=== PATIENT | female | born 1990 | race Caucasian/White ===

== ENCOUNTER 2025-01-14 13:25 | Emergency (ER) | payer OTHER, SELFPAY ==
[2025-01-14] VITALS (15 sets, daily range): BP systolic 138–214; BP diastolic 89–120; PULSE 56–76; RESP 14–18; TEMP 36.4–36.7; O2SAT 98–100; BMI 40.3
--- NOTE | 2025-01-14 13:28 | ECG_ITS ---
APPROVED REPORT Exam: Resting ECG HR:66 bpm ECG Measurements Heart Rate 66 AXES NE 147 P 47 QRSd 76 QRS 30 QT 365 T 22 QTc 378 Conclusion SINUS RHYTHM WITH SINUS ARRHYTHMIA NORMAL ECG UNCONFIRMED REPORT Normal sinus rhythm. No ST elevation or depression. Electronically signed by : QUETA REYNOSO, 01/15/2025 07:34:51
--- NOTE | 2025-01-14 13:32 | [facility].EDCP ---
Discharge Plan Disposition Patient Disposition: Home, Self-Care Condition: Good Activity Restrictions/Add. Instructions Additional Instructions/Restrictions: As we discussed I recommend following up with your PCP as soon as you get back to [place]. I also recommend you continue to keep a blood pressure log for the next few days in the morning and at night as some other point during the day. If you have any new or worsening signs or symptoms return to the ER as needed. Clinical Impressions Clinical Impression: Chest pain Qualifiers: Chest pain type: unspecified Qualified Code(s): R07.9 - Chest pain, unspecified Print Language Print Language: [place] Discharge ED Provider: Jose Juan Guajardo HPI <NITA Baxter - Last Filed: 01/14/25 16:36> General Chief Complaint: Chest Pain Stated Complaint: chest pain Time Seen by Provider: 01/14/25 13:32 History of Present Illness HPI narrative: Patient presents for evaluation of chest heaviness. Patient reports that approximately 2 to 3 hours ago she began having chest heaviness. She also reports that she has dizziness that is not aggravated by movement or position. Patient has no known past medical history other than obesity and endometriosis and is on no home medications currently. She does not smoke. She denies shortness of breath diaphoresis fever chills hemoptysis hematochezia melena nausea vomiting or diarrhea. Related Data Allergies Allergy/AdvReac Type Severity Reaction Status Date / Time No Known Allergies Allergy Verified 01/14/25 13:36 [facility] <NITA Baxter - Last Filed: 01/14/25 16:36> [facility] Disclaimer: The information contained in this section may have been updated after the patient was seen, as this information can be updated by other users. Social History (Updated 01/14/25 @ 16:36 by NITA Baxter) Smoking Status: Never smoker alcohol intake: never current occupational status: employed Travel in the last 8 weeks?: None Have you lived/traveled outside US in past 30 days?: No Contact w/someone who lives/traveled outside US past 30 days?: No Exposure to someone with infectious disease in past 14 days?: No Do you have a fever (greater than 100.4 F or 38 C)?: No Have you tested positive for COVID-19?: No Exposed to someone with COVID-19 in past 14 days?: No Do you have a sore throat?: No Do you have a cough?: No Do you have any weakness?: No Do you have any diarrhea?: No Are you experiencing any unusual bleeding?: No Do you have any muscle aches/pain?: No Do you have any abdominal pain?: No Are you experiencing loss of taste or smell?: No <NITA Baxter - Last Filed: 01/14/25 16:36> ROS Obtained: Yes Systems reviewed as appropriate & no additional complaints except as documented Physical Exam <NITA Baxter - Last Filed: 01/14/25 16:36> General General appearance: alert and in no apparent distress Respiratory Respiratory exam: Present normal lung sounds bilaterally Cardiovascular Cardiovascular exam: Present regular rate Neurological Exam Neurological exam: Present alert and oriented X3 HEART Score <NITA Baxter - Last Filed: 01/14/25 16:36> HEART Score HEART Score assessment performed?: Yes History (anamnesis): Slightly suspicious ECG: Normal Age: <45 years Risk factors: 1-2 risk factors Troponin: </= normal limit HEART Score: 1 <Jose Juan Guajardo MD - Last Filed: 01/14/25 19:47> HEART Score HEART Score: 1 <Kirk Amezquita MD - Last Filed: 01/14/25 16:46> HEART Score HEART Score: 1 Critical Care <NITA Baxter - Last Filed: 01/14/25 16:36> Critical Care Time Critical Care Time: No Medical Decision Making <NITA Baxter - Last Filed: 01/14/25 16:36> Medical Records Medical records reviewed: Yes I reviewed the patient's medical records. Richar Inquiry Pt receiving controlled substance: No Vital Signs Vital Signs: 01/14/25 13:31 01/14/25 13:39 01/14/25 13:46 Temperature 98.1 F Temperature Source Oral Pulse Rate 76 66 Pulse Rate [Left] 76 Respiratory Rate 18 18 16 Blood Pressure 171/100 H 158/96 H Blood Pressure [Left AC] 214/120 H Blood Pressure Mean 123 116 Blood Pressure Mean [Left AC] 151 Blood Pressure Source Blood Pressure Source [Left AC] Automatic Cuff Blood Pressure Position 02 Sat by Pulse Oximetry 100 100 100 Oxygen Delivery Method Room Air 01/14/25 14:03 01/14/25 14:16 01/14/25 14:30 Temperature Temperature Source Pulse Rate 68 67 66 Pulse Rate [Left] Respiratory Rate 18 18 18 Blood Pressure 158/104 H 158/93 H 159/92 H Blood Pressure [Left AC] Blood Pressure Mean 122 112 114 Blood Pressure Mean [Left AC] Blood Pressure Source Blood Pressure Source [Left AC] Blood Pressure Position 02 Sat by Pulse Oximetry 100 99 99 Oxygen Delivery Method 01/14/25 14:45 01/14/25 15:00 01/14/25 15:16 Temperature Temperature Source Pulse Rate 70 63 63 Pulse Rate [Left] Respiratory Rate 18 16 18 Blood Pressure 138/90 148/89 H 138/92 H Blood Pressure [Left AC] Blood Pressure Mean 106 109 112 Blood Pressure Mean [Left AC] Blood Pressure Source Blood Pressure Source [Left AC] Blood Pressure Position 02 Sat by Pulse Oximetry 98 98 99 Oxygen Delivery Method 01/14/25 15:30 01/14/25 15:45 01/14/25 16:00 Temperature Temperature Source Pulse Rate 62 63 59 L Pulse Rate [Left] Respiratory Rate 18 16 16 Blood Pressure 145/98 H 147/91 H 157/106 H Blood Pressure [Left AC] Blood Pressure Mean 112 109 116 Blood Pressure Mean [Left AC] Blood Pressure Source Blood Pressure Source [Left AC] Blood Pressure Position 02 Sat by Pulse Oximetry 100 98 99 Oxygen Delivery Method 01/14/25 16:16 01/14/25 16:16 01/14/25 16:24 Temperature 97.6 F Temperature Source Oral Pulse Rate 59 L 66 61 Pulse Rate [Left] Respiratory Rate 14 14 Blood Pressure 151/98 H 151/98 H Blood Pressure [Left AC] Blood Pressure Mean 109 Blood Pressure Mean [Left AC] Blood Pressure Source Automatic Cuff Blood Pressure Source [Left AC] Blood Pressure Position Supine 02 Sat by Pulse Oximetry 98 98 Oxygen Delivery Method Room Air 01/14/25 16:30 Temperature Temperature Source Pulse Rate 56 L Pulse Rate [Left] Respiratory Rate Blood Pressure 163/102 H Blood Pressure [Left AC] Blood Pressure Mean 112 Blood Pressure Mean [Left AC] Blood Pressure Source Blood Pressure Source [Left AC] Blood Pressure Position 02 Sat by Pulse Oximetry Oxygen Delivery Method Lab Data Lab results reviewed: Yes I reviewed the patient's lab results. Labs: Lab Results 01/14/25 13:30: WBC 9.9, RBC 4.89, Hgb 14.6, Hct 42.8, MCV 87.5, MCH 29.9, MCHC 34.1, RDW 13.0, Plt Count 378, MPV 8.8, Neut % (Auto) 45.7, Lymph % (Auto) 41.0, [place] % (Auto) 7.2, Eos % (Auto) 5.1, Baso % (Auto) 0.8, Neut # (Auto) 4.5, Lymph # (Auto) 4.1, [place] # (Auto) 0.7, Eos # (Auto) 0.5 H, Baso # (Auto) 0.1, PT 11.0, INR 0.99, D-Dimer 0.89 H, Sodium 136, Potassium 3.3 L, Chloride 102, Carbon Dioxide 26, Anion Gap 11.3, BUN 9, Creatinine 0.70, Estimated Creat Clear 207, Estimated GFR 97, Est GFR ( Amer) 117, Glucose 94, Calcium 9.7, Magnesium 1.7, Total Bilirubin 0.9, AST 31, ALT 24, Alkaline Phosphatase 104, Troponin I < 0.01, NT-Pro-B Natriuret Pep < 20.0, Total Protein 8.0, Albumin 4.7, Globulin 3.3 H, Albumin/Globulin Ratio 1.4, Procalcitonin 0.055, TSH 1.40, Free T4 Index 3.5 L, Thyroxine (T4) 10.1, T3 Uptake 35, HCV Ab JHONATAN w/Rflx PCR Qn Negative, HIV Ag/Ab Combo Qual Negative 01/14/25 14:02: Urine Color Yellow, Urine Appearance Clear, Urine pH 6.0, Ur Specific [place] 1.020, Urine Protein Trace, Urine Glucose (UA) Negative, Urine Ketones Negative, Urine Blood 3+ A, Urine Nitrate Negative, Urine Bilirubin Negative, Urine Urobilinogen 0.2, Ur Leukocyte Esterase Negative, Urine RBC 5-10, Urine WBC Occasional, Ur Squamous Epith Cells 20-50, Urine Bacteria 1+, Urine HCG, Qual Negative 01/14/25 15:45: Troponin I < 0.01 01/14/25 13:30 01/14/25 13:30 Response Orders (Tests/Meds): ED MEDICATIONS Discontinued Medications Generic Name Dose Route Start Last Admin Trade Name Freq PRN Reason Stop Dose Admin Acetaminophen 1,000 mg 01/14/25 13:32 01/14/25 13:39 Acetaminophen 500mg Tab PO 01/14/25 13:33 1,000 mg ONCE ONE Administration Ondansetron HCl 4 mg 01/14/25 13:32 01/14/25 13:39 Ondansetron 4mg/2ml Vial IV 01/14/25 13:33 4 mg ONCE ONE Administration ORDERS Category Date Time Status XR chest portable Stat Exams 01/14/25 13:34 Completed BNP [NT Pro Brain Natriuretic Pep.] Stat Lab 01/14/25 13:30 Completed CBC w/Auto Diff [Complete Blood Count Auto Diff] Stat Lab 01/14/25 13:30 Completed CMP [Comprehensive Metabolic Panel] Stat Lab 01/14/25 13:30 Completed D-Dimer Stat Lab 01/14/25 13:30 Completed HIV Combo Stat Lab 01/14/25 13:30 Completed Hepatitis C Ab Qual. W/ RFX Stat Lab 01/14/25 13:30 Completed INR [Prothrombin Time INR] Stat Lab 01/14/25 13:30 Completed Magnesium Stat Lab 01/14/25 13:30 Completed Procalcitonin Stat Lab 01/14/25 13:30 Completed Thyroid Panel Stat Lab 01/14/25 13:30 Completed Trop I [Troponin I] Stat Lab 01/14/25 13:30 Completed Troponin I Q3H Lab 01/14/25 15:45 Completed UA [Urinalysis and Microscopic] Stat Lab 01/14/25 14:02 Completed Urine , HCG Qual. Stat Lab 01/14/25 14:02 Completed MDM Narrative Medical Decision Narrative: In summary patient is a 34-year-old female who presents to the emergency department for evaluation of chest pressure. Patient is significantly hypertensive currently with a blood pressure of 214/120 heart rate 76 with sinus rhythm on the bedside monitor breathing 18 times a minute satting at 100% on room air upon arrival, afebrile at 90.1. Physical exam is remarkable for well-nourished well-developed obese, with a BMI of 40, 34-year-old female who otherwise in no acute distress. Pupils equal round reactive to light, bilateral legs are normal, with no C-spine tenderness; any and she has full range of motion of her C-spine without dizziness provocation. Breath sounds clear and equal bilaterally to the bases without adventitious sounds or increased work of breathing, cardiac is S1-2 regular rhythm, no thrills, abdomen soft nontender no re is the patient was placed in observation status at [time]. Medical necessity for observational status is serial troponins. The patient was provided serial reevaluations continuous cardiac monitoring and pulse oximetry while awaiting results. Second troponin is also undetectable. Upon reevaluation patient remains asymptomatic with normal blood pressure. Given this patient is appropriate for discharge with close follow-up with her PCP when she returns to [place]. If she has any new or worsening signs or symptoms she can return to the ER as needed.. Total time in observation was 1 hour 30 minutes <Jose Juan Guajardo MD - Last Filed: 01/14/25 19:47> Vital Signs Vital Signs: 01/14/25 13:31 01/14/25 13:39 01/14/25 13:46 Temperature 98.1 F Temperature Source Oral Pulse Rate 76 66 Pulse Rate [Left] 76 Respiratory Rate 18 18 16 Blood Pressure 171/100 H 158/96 H Blood Pressure [Left AC] 214/120 H Blood Pressure Mean 123 116 Blood Pressure Mean [Left AC] 151 Blood Pressure Source Blood Pressure Source [Left AC] Automatic Cuff Blood Pressure Position 02 Sat by Pulse Oximetry 100 100 100 Oxygen Delivery Method Room Air 01/14/25 14:03 01/14/25 14:16 01/14/25 14:30 Temperature Temperature Source Pulse Rate 68 67 66 Pulse Rate [Left] Respiratory Rate 18 18 18 Blood Pressure 158/104 H 158/93 H 159/92 H Blood Pressure [Left AC] Blood Pressure Mean 122 112 114 Blood Pressure Mean [Left AC] Blood Pressure Source Blood Pressure Source [Left AC] Blood Pressure Position 02 Sat by Pulse Oximetry 100 99 99 Oxygen Delivery Method 01/14/25 14:45 01/14/25 15:00 01/14/25 15:16 Temperature Temperature Source Pulse Rate 70 63 63 Pulse Rate [Left] Respiratory Rate 18 16 18 Blood Pressure 138/90 148/89 H 138/92 H Blood Pressure [Left AC] Blood Pressure Mean 106 109 112 Blood Pressure Mean [Left AC] Blood Pressure Source Blood Pressure Source [Left AC] Blood Pressure Position 02 Sat by Pulse Oximetry 98 98 99 Oxygen Delivery Method 01/14/25 15:30 01/14/25 15:45 01/14/25 16:00 Temperature Temperature Source Pulse Rate 62 63 59 L Pulse Rate [Left] Respiratory Rate 18 16 16 Blood Pressure 145/98 H 147/91 H 157/106 H Blood Pressure [Left AC] Blood Pressure Mean 112 109 116 Blood Pressure Mean [Left AC] Blood Pressure Source Blood Pressure Source [Left AC] Blood Pressure Position 02 Sat by Pulse Oximetry 100 98 99 Oxygen Delivery Method 01/14/25 16:16 01/14/25 16:16 01/14/25 16:24 Temperature 97.6 F Temperature Source Oral Pulse Rate 59 L 66 61 Pulse Rate [Left] Respiratory Rate 14 14 Blood Pressure 151/98 H 151/98 H Blood Pressure [Left AC] Blood Pressure Mean 109 Blood Pressure Mean [Left AC] Blood Pressure Source Automatic Cuff Blood Pressure Source [Left AC] Blood Pressure Position Supine 02 Sat by Pulse Oximetry 98 98 Oxygen Delivery Method Room Air 01/14/25 16:30 Temperature Temperature Source Pulse Rate 56 L Pulse Rate [Left] Respiratory Rate Blood Pressure 163/102 H Blood Pressure [Left AC] Blood Pressure Mean 112 Blood Pressure Mean [Left AC] Blood Pressure Source Blood Pressure Source [Left AC] Blood Pressure Position 02 Sat by Pulse Oximetry Oxygen Delivery Method Lab Data Labs: Lab Results 01/14/25 13:30: WBC 9.9, RBC 4.89, Hgb 14.6, Hct 42.8, MCV 87.5, MCH 29.9, MCHC 34.1, RDW 13.0, Plt Count 378, MPV 8.8, Neut % (Auto) 45.7, Lymph % (Auto) 41.0, [place] % (Auto) 7.2, Eos % (Auto) 5.1, Baso % (Auto) 0.8, Neut # (Auto) 4.5, Lymph # (Auto) 4.1, [place] # (Auto) 0.7, Eos # (Auto) 0.5 H, Baso # (Auto) 0.1, PT 11.0, INR 0.99, D-Dimer 0.89 H, Sodium 136, Potassium 3.3 L, Chloride 102, Carbon Dioxide 26, Anion Gap 11.3, BUN 9, Creatinine 0.70, Estimated Creat Clear 207, Estimated GFR 97, Est GFR ( Amer) 117, Glucose 94, Calcium 9.7, Magnesium 1.7, Total Bilirubin 0.9, AST 31, ALT 24, Alkaline Phosphatase 104, Troponin I < 0.01, NT-Pro-B Natriuret Pep < 20.0, Total Protein 8.0, Albumin 4.7, Globulin 3.3 H, Albumin/Globulin Ratio 1.4, Procalcitonin 0.055, TSH 1.40, Free T4 Index 3.5 L, Thyroxine (T4) 10.1, T3 Uptake 35, HCV Ab JHONATAN w/Rflx PCR Qn Negative, HIV Ag/Ab Combo Qual Negative 01/14/25 14:02: Urine Color Yellow, Urine Appearance Clear, Urine pH 6.0, Ur Specific [place] 1.020, Urine Protein Trace, Urine Glucose (UA) Negative, Urine Ketones Negative, Urine Blood 3+ A, Urine Nitrate Negative, Urine Bilirubin Negative, Urine Urobilinogen 0.2, Ur Leukocyte Esterase Negative, Urine RBC 5-10, Urine WBC Occasional, Ur Squamous Epith Cells 20-50, Urine Bacteria 1+, Urine HCG, Qual Negative 01/14/25 15:45: Troponin I < 0.01 Response Orders (Tests/Meds): ED MEDICATIONS Discontinued Medications Generic Name Dose Route Start Last Admin Trade Name Freq PRN Reason Stop Dose Admin Acetaminophen 1,000 mg 01/14/25 13:32 01/14/25 13:39 Acetaminophen 500mg Tab PO 01/14/25 13:33 1,000 mg ONCE ONE Administration Ondansetron HCl 4 mg 01/14/25 13:32 01/14/25 13:39 Ondansetron 4mg/2ml Vial IV 01/14/25 13:33 4 mg ONCE ONE Administration ORDERS Category Date Time Status XR chest portable Stat Exams 01/14/25 13:34 Completed BNP [NT Pro Brain Natriuretic Pep.] Stat Lab 01/14/25 13:30 Completed CBC w/Auto Diff [Complete Blood Count Auto Diff] Stat Lab 01/14/25 13:30 Completed CMP [Comprehensive Metabolic Panel] Stat Lab 01/14/25 13:30 Completed D-Dimer Stat Lab 01/14/25 13:30 Completed HIV Combo Stat Lab 01/14/25 13:30 Completed Hepatitis C Ab Qual. W/ RFX Stat Lab 01/14/25 13:30 Completed INR [Prothrombin Time INR] Stat Lab 01/14/25 13:30 Completed Magnesium Stat Lab 01/14/25 13:30 Completed Procalcitonin Stat Lab 01/14/25 13:30 Completed Thyroid Panel Stat Lab 01/14/25 13:30 Completed Trop I [Troponin I] Stat Lab 01/14/25 13:30 Completed Troponin I Q3H Lab 01/14/25 15:45 Completed UA [Urinalysis and Microscopic] Stat Lab 01/14/25 14:02 Completed Urine , HCG Qual. Stat Lab 01/14/25 14:02 Completed ECG Data Tracing #1: Attestation: I reviewed this ECG and interpreted as documented below: ECG Narrative: Normal sinus rhythm. No ST elevation or depression. No inverted T waves. QTc normal at 378 MDM Narrative Medical Decision Narrative: In summary patient is a 34-year-old female who presents to the emergency department for evaluation of chest pressure. Patient is significantly hypertensive currently with a blood pressure of 214/120 heart rate 76 with sinus rhythm on the bedside monitor breathing 18 times a minute satting at 100% on room air upon arrival, afebrile at 90.1. Physical exam is remarkable for well-nourished well-developed obese, with a BMI of 40, 34-year-old female who otherwise in no acute distress. Pupils equal round reactive to light, bilateral legs are normal, with no C-spine tenderness; any and she has full range of motion of her C-spine without dizziness provocation. Breath sounds clear and equal bilaterally to the bases without adventitious sounds or increased work of breathing, cardiac is S1-2 regular rhythm, no thrills, abdomen soft nontender no re is the patient was placed in observation status at [time]. Medical necessity for observational status is serial troponins. The patient was provided serial reevaluations continuous cardiac monitoring and pulse oximetry while awaiting results. Second troponin is also undetectable. Upon reevaluation patient remains asymptomatic with normal blood pressure. Given this patient is appropriate for discharge with close follow-up with her PCP when she returns to [place]. If she has any new or worsening signs or symptoms she can return to the ER as needed.. Total time in observation was 1 hour 30 minutes I was consulted by the RONNIE, and we discussed the complexity of the problems being addressed. I approve the treatment and management plan for this patient's care in the emergency department, thus performing a substantive portion of the medical decision making. At the time of my handoff to Dr. Amezquita, patient was pending second troponin. Her symptoms had resolved at this point and her blood pressure had significantly improved without intervention. If second troponin is flat, she would likely be appropriate for discharge. Jose Juan Guajardo MD I was consulted by the RONNIE, and we discussed the complexity of the problems being addressed. I approved the treatment and management plan for this patient's care in the emergency department, thus performing a substantive portion of the medical decision making. Kirk Amezquita MD <Kirk Amezquita MD - Last Filed: 01/14/25 16:46> Vital Signs Vital Signs: 01/14/25 13:31 01/14/25 13:39 01/14/25 13:46 Temperature 98.1 F Temperature Source Oral Pulse Rate 76 66 Pulse Rate [Left] 76 Respiratory Rate 18 18 16 Blood Pressure 171/100 H 158/96 H Blood Pressure [Left AC] 214/120 H Blood Pressure Mean 123 116 Blood Pressure Mean [Left AC] 151 Blood Pressure Source Blood Pressure Source [Left AC] Automatic Cuff Blood Pressure Position 02 Sat by Pulse Oximetry 100 100 100 Oxygen Delivery Method Room Air 01/14/25 14:03 01/14/25 14:16 01/14/25 14:30 Temperature Temperature Source Pulse Rate 68 67 66 Pulse Rate [Left] Respiratory Rate 18 18 18 Blood Pressure 158/104 H 158/93 H 159/92 H Blood Pressure [Left AC] Blood Pressure Mean 122 112 114 Blood Pressure Mean [Left AC] Blood Pressure Source Blood Pressure Source [Left AC] Blood Pressure Position 02 Sat by Pulse Oximetry 100 99 99 Oxygen Delivery Method 01/14/25 14:45 01/14/25 15:00 01/14/25 15:16 Temperature Temperature Source Pulse Rate 70 63 63 Pulse Rate [Left] Respiratory Rate 18 16 18 Blood Pressure 138/90 148/89 H 138/92 H Blood Pressure [Left AC] Blood Pressure Mean 106 109 112 Blood Pressure Mean [Left AC] Blood Pressure Source Blood Pressure Source [Left AC] Blood Pressure Position 02 Sat by Pulse Oximetry 98 98 99 Oxygen Delivery Method 01/14/25 15:30 01/14/25 15:45 01/14/25 16:00 Temperature Temperature Source Pulse Rate 62 63 59 L Pulse Rate [Left] Respiratory Rate 18 16 16 Blood Pressure 145/98 H 147/91 H 157/106 H Blood Pressure [Left AC] Blood Pressure Mean 112 109 116 Blood Pressure Mean [Left AC] Blood Pressure Source Blood Pressure Source [Left AC] Blood Pressure Position 02 Sat by Pulse Oximetry 100 98 99 Oxygen Delivery Method 01/14/25 16:16 01/14/25 16:16 01/14/25 16:24 Temperature 97.6 F Temperature Source Oral Pulse Rate 59 L 66 61 Pulse Rate [Left] Respiratory Rate 14 14 Blood Pressure 151/98 H 151/98 H Blood Pressure [Left AC] Blood Pressure Mean 109 Blood Pressure Mean [Left AC] Blood Pressure Source Automatic Cuff Blood Pressure Source [Left AC] Blood Pressure Position Supine 02 Sat by Pulse Oximetry 98 98 Oxygen Delivery Method Room Air 01/14/25 16:30 Temperature Temperature Source Pulse Rate 56 L Pulse Rate [Left] Respiratory Rate Blood Pressure 163/102 H Blood Pressure [Left AC] Blood Pressure Mean 112 Blood Pressure Mean [Left AC] Blood Pressure Source Blood Pressure Source [Left AC] Blood Pressure Position 02 Sat by Pulse Oximetry Oxygen Delivery Method Lab Data Labs: Lab Results 01/14/25 13:30: WBC 9.9, RBC 4.89, Hgb 14.6, Hct 42.8, MCV 87.5, MCH 29.9, MCHC 34.1, RDW 13.0, Plt Count 378, MPV 8.8, Neut % (Auto) 45.7, Lymph % (Auto) 41.0, [place] % (Auto) 7.2, Eos % (Auto) 5.1, Baso % (Auto) 0.8, Neut # (Auto) 4.5, Lymph # (Auto) 4.1, [place] # (Auto) 0.7, Eos # (Auto) 0.5 H, Baso # (Auto) 0.1, PT 11.0, INR 0.99, D-Dimer 0.89 H, Sodium 136, Potassium 3.3 L, Chloride 102, Carbon Dioxide 26, Anion Gap 11.3, BUN 9, Creatinine 0.70, Estimated Creat Clear 207, Estimated GFR 97, Est GFR ( Amer) 117, Glucose 94, Calcium 9.7, Magnesium 1.7, Total Bilirubin 0.9, AST 31, ALT 24, Alkaline Phosphatase 104, Troponin I < 0.01, NT-Pro-B Natriuret Pep < 20.0, Total Protein 8.0, Albumin 4.7, Globulin 3.3 H, Albumin/Globulin Ratio 1.4, Procalcitonin 0.055, TSH 1.40, Free T4 Index 3.5 L, Thyroxine (T4) 10.1, T3 Uptake 35, HCV Ab JHONATAN w/Rflx PCR Qn Negative, HIV Ag/Ab Combo Qual Negative 01/14/25 14:02: Urine Color Yellow, Urine Appearance Clear, Urine pH 6.0, Ur Specific [place] 1.020, Urine Protein Trace, Urine Glucose (UA) Negative, Urine Ketones Negative, Urine Blood 3+ A, Urine Nitrate Negative, Urine Bilirubin Negative, Urine Urobilinogen 0.2, Ur Leukocyte Esterase Negative, Urine RBC 5-10, Urine WBC Occasional, Ur Squamous Epith Cells 20-50, Urine Bacteria 1+, Urine HCG, Qual Negative 01/14/25 15:45: Troponin I < 0.01 Response Orders (Tests/Meds): ED MEDICATIONS Discontinued Medications Generic Name Dose Route Start Last Admin Trade Name Freq PRN Reason Stop Dose Admin Acetaminophen 1,000 mg 01/14/25 13:32 01/14/25 13:39 Acetaminophen 500mg Tab PO 01/14/25 13:33 1,000 mg ONCE ONE Administration Ondansetron HCl 4 mg 01/14/25 13:32 01/14/25 13:39 Ondansetron 4mg/2ml Vial IV 01/14/25 13:33 4 mg ONCE ONE Administration ORDERS Category Date Time Status XR chest portable Stat Exams 01/14/25 13:34 Completed BNP [NT Pro Brain Natriuretic Pep.] Stat Lab 01/14/25 13:30 Completed CBC w/Auto Diff [Complete Blood Count Auto Diff] Stat Lab 01/14/25 13:30 Completed CMP [Comprehensive Metabolic Panel] Stat Lab 01/14/25 13:30 Completed D-Dimer Stat Lab 01/14/25 13:30 Completed HIV Combo Stat Lab 01/14/25 13:30 Completed Hepatitis C Ab Qual. W/ RFX Stat Lab 01/14/25 13:30 Completed INR [Prothrombin Time INR] Stat Lab 01/14/25 13:30 Completed Magnesium Stat Lab 01/14/25 13:30 Completed Procalcitonin Stat Lab 01/14/25 13:30 Completed Thyroid Panel Stat Lab 01/14/25 13:30 Completed Trop I [Troponin I] Stat Lab 01/14/25 13:30 Completed Troponin I Q3H Lab 01/14/25 15:45 Completed UA [Urinalysis and Microscopic] Stat Lab 01/14/25 14:02 Completed Urine , HCG Qual. Stat Lab 01/14/25 14:02 Completed MDM Narrative Medical Decision Narrative: In summary patient is a 34-year-old female who presents to the emergency department for evaluation of chest pressure. Patient is significantly hypertensive currently with a blood pressure of 214/120 heart rate 76 with sinus rhythm on the bedside monitor breathing 18 times a minute satting at 100% on room air upon arrival, afebrile at 90.1. Physical exam is remarkable for well-nourished well-developed obese, with a BMI of 40, 34-year-old female who otherwise in no acute distress. Pupils equal round reactive to light, bilateral legs are normal, with no C-spine tenderness; any and she has full range of motion of her C-spine without dizziness provocation. Breath sounds clear and equal bilaterally to the bases without adventitious sounds or increased work of breathing, cardiac is S1-2 regular rhythm, no thrills, abdomen soft nontender no re is the patient was placed in observation status at [time]. Medical necessity for observational status is serial troponins. The patient was provided serial reevaluations continuous cardiac monitoring and pulse oximetry while awaiting results. Second troponin is also undetectable. Upon reevaluation patient remains asymptomatic with normal blood pressure. Given this patient is appropriate for discharge with close follow-up with her PCP when she returns to [place]. If she has any new or worsening signs or symptoms she can return to the ER as needed.. Total time in observation was 1 hour 30 minutes I was consulted by the RONNIE, and we discussed the complexity of the problems being addressed. I approved the treatment and management plan for this patient's care in the emergency department, thus performing a substantive portion of the medical decision making. Kirk Amezquita MD
--- NOTE | 2025-01-14 13:34 | XR_ITS ---
FINAL REPORT TECHNIQUE: Single view chest CLINICAL HISTORY: Chest pain FINDINGS: A single view of the chest was obtained. The heart and mediastinum are within normal limits. The lungs are clear. There is no pneumothorax. IMPRESSION: No acute cardiopulmonary process. Reviewed, Interpreted and Dictated by Claudia Ovalle MD Transcribed by Whitley Guadarrama Authenticated and . [facility] [place]
[2025-01-14] MEDS: ACETAMINOPHEN 500MG TAB 1000 MG PO (13:39)
[2025-01-14] MEDS: ONDANSETRON 4MG/2ML VIAL 4 MG IV (13:39)
[2025-01-14 14:02] LABS: Hematocrit 42.8 % (37.0-47.0); Hemoglobin 14.6 g/dL (12.2-16.2); Immature Granulocytes % 0.2 %; Mean Corpuscular HGB Conc 34.1 g/dL (31.8-35.4); Mean Corpuscular Hemoglobin 29.9 pg (27.0-31.2); Mean Corpuscular Volume 87.5 fl (81-99); Nucleated Red Blood Cells % 0 %; Platelet Count 378 K/mm3 (142-424); Red Blood Count 4.89 M/mm3 (4.20-5.40); Red Cell Distribution Width-SD 41.5 fL; White Blood Count 9.9 K/mm3 (4.8-10.8)
[2025-01-14 14:09] LABS: Microscopic, Urine URINE MICROSCOPIC (MICROSCOPIC)
[2025-01-14 14:11] LABS: Alanine Aminotransferase 24 U/L (12-78); Albumin Level 4.7 g/dl (3.5-5.0); Albumin/Globulin Ratio 1.4 (1.1-1.8); Alkaline Phosphatase 104 U/L (38-126); Anion Gap 11.3 mEq/L (5-15); Aspartate Amino Transferase 31 U/L (14-36); Bilirubin,Total 0.9 mg/dl (0.2-1.3); Blood Urea Nitrogen 9 mg/dl (7-17); Calcium 9.7 mg/dl (8.4-10.2); Carbon Dioxide 26 mmol/L (22.0-30.0); Chloride 102 mmol/L (98-107); Creatinine Clearance Estimated 207 mL/min (50-200); Creatinine,Serum 0.70 mg/dl (0.52-1.04); Estimated Glomerular Filt Rate 97 ml/min (>60); GFR (African American) 117 ML/MIN (>60); Globulin 3.3 g/dL (1.3-3.2); Glucose 94 mg/dl (74-100); Magnesium 1.7 mg/dl (1.6-2.3); Potassium 3.3 mmoL/L (3.5-5.1); Sodium 136 mmol/L (136-145); Total Protein,Serum 8.0 g/dl (6.3-8.2)
--- OUTSIDE RECORDS SUMMARY | 2025-01-14 14:13 | XMS_ITS | Encounter Summary ---
Author Organization [facility] Ambulatory Address [address] [place] [address] Phone Care Team Providers Care Auto Clocks Repairer Name Role Phone External, Provider Unavailable Unavailable Ted Aguirre MD Primary Care Provider [phone] Dionte Alexis MD Unavailable Quang Moreno MD Unavailable [phone] Sharmaine Harris PA-C Unavailable Provider, Generic External Data Unavailable Unavailable ProviderQuita MD Unavailable Unavailabl Chad Abreu MD Unavailable [phone] Provider, Historical Unavailable Unavailable Caren Jacobs PA-C Unavailable [phone] Source Comments This information has been disclosed to you from records protected by federal confidentiality rules (42 CFR part 2). The federal rules prohibit you from making any further disclosure of information inthis record that identifies a patient as having or having had a substance use disorder either directly, by reference to publicly available information, or through verification of such identification by another person unless further disclosure is expressly permitted by the written consent of the individual whose information is being disclosed or as otherwise permitted by 42 CFR part 2. A general authorization for the release of medical or other information is NOT sufficient for this purpose (seesection 2.31). The federal rules restrict any use of the information to investigate or prosecute with regard to a crime any patient with a substance use disorder, except as provided at sections 2.12(c)(5) and 2.65.[facility] Ambulatory Encounter Details Date Type Department Care Team (Latest Contact Info) Description 01/18/2014 Letter (Out) Social History Tobacco Use Types Packs/Day Years Used Date Smoking Tobacco: Never Alcohol Use Standard Drinks/Week Comments No 0 (1 standard drink = 0.6 oz pur e alcohol) Comments Unknown Sex and Gender Information Value Date Recorded Sex Assigned at Not on file Legal Sex Female 11:40 AM EST Gender Identity Not on file Sexual Orientation Not on file documented as of this encounter Plan of Treatment Not on file documented as of this encounter Visit Diagnoses Not on filedocumented in this encounter Care Teams Auto Clocks Repairer Relationship Specialty Start Date End Date Ted Aguirre MD PCP - General Family Medicine 01/18/14 External, Provider 01/17/14 Dionte Alexis MD [address] [place] [address] [address] [place] [address] Orthopaedics 01/18/14 Quang Moreno MD [address] [place] [address] [address] [place] [address] Orthopaedics 03/20/18 Sharmaine Harris PA-C [address] [place] [address] [place] [id number] Orthopaedic Surgery 04/18/18 Provider, Generic External Data 11/09/21 Provider, MD Quita [facility] PROVIDER 04/28/23 Chad Manning MD [address] [place] [address] [address] [place] [address] welt rander 05/09/23 Provider, Historical EPICARE PROVIDER 09/21/24 Caren Jacobs PA-C [address] [place] [phone] welt rander 09/27/24 documented as of this encounter
--- OUTSIDE RECORDS SUMMARY | 2025-01-14 14:13 | XMS_ITS | Referral Summary ---
Author Organization [facility] Ambulatory Address [address] [place] [address] Phone Care Team Providers Care Petal Cutter Name Role Phone External, Provider Unavailable Unavailable Ted Aguirre MD Primary Care Provider [phone] Dionte Alexis MD Unavailable Quang Moreno MD Unavailable [phone] Sharmaine Harris PA-C Unavailable [phone] Provider, Generic External Data Unavailable Unavailable ProviderQuita MD Unavailable Unavailabl e Chad Manning MD Unavailable [phone] Provider, Historical Unavailable Unavailable Caren Jacobs PA-C Unavailable [phone] Source Comments This information has been disclosed [...] except as provided at sections 2.12(c)(5) and 2.65.[facility] Ambulatory Allergies Active Allergy Reactions Criticality Noted Date Comments Latex 05/18/2019 Medications NO CURRENT CHRONIC MEDICATIONS Active albuterol sulfate 90 mcg/actuation inhl inhaler INHALE 1 PUFF BY MOUTH EVERY 6 HOURS NEEDED FOR 30 DAYS 2 Active atorvastatin (LIPITOR) 10 mg oral tablet Take 10 mg by mouth daily 2 Active budesonide-formo teroL (SYMBICORT) 160-4.5 mcg/actuation inhaler Take 2 puffs Active diltiazem (CARDIZEM CD) 120 mg oral extended-release capsule Take 240 mg by mouth daily 2 Active escitalopram oxalate (LEXAPRO) 10 mg oral tablet Take 10 mg by mouth daily 2 Active pantoprazole (PROTONIX) 20 mg oral delayed-release tablet Take 20 mg by mouth daily Active mometasone (ELOCON) 0.1 % topical creamIndications :Insect bite of lower leg, unspecified laterality, initial encounter Apply to affected area 2 times a day as needed 30 g 4 Active leuprolide, 3 Month, (LUPRON DEPOT, 3 MONTH,) 11.25 mg IM Injection once every 12 weeks 1 kit 3 5 Active Active Problems Problem Noted Date Diagnosed Date Finger mass, right 04/18/2018 Social History Tobacco Use Types Packs/Day Years Used Date Smoking Tobacco: Never Smokeless Tobacco: Never Alcohol Use Standard Drinks/Week Comments Yes 0 (1 standard drink = 0.6 oz pur e alcohol) Depression Answer Date Recorded PHQ Score Not on file 11/24/2019 PHQ Result PHQ-9 Score <= 4 11/24/2019 Comments No Sex and Gender Information Value Date Recorded Sex Assigned at Not on file Legal Sex Female 11:40 AM EST Gender Identity Not on file Sexual Orientation Not on file Last Filed Vital Signs Vital Sign Reading Time Taken Comments Blood Pressure 145/94 04/20/2024 5:49 PM EDT Pulse 89 04/20/2024 5:49 PM EDT Temperature 36.6 C (97.9 F) 04/20/2024 5:49 PM EDT Respiratory Rate 20 04/20/2024 5:49 PM EDT Oxygen Saturation 97% 04/20/2024 5:49 PM EDT Inhaled Oxygen Concentration - - Weight 110.7 kg (244 lb) 04/20/2024 5:49 PM EDT Height 167.6 cm (5' 6 ) 07/25/2023 1:54 PM EST Body Mass Index 39.38 07/25/2023 1:54 PM EST Plan of Treatment Not on file [place] [address] [address] EXCHANGE INDIVIDUAL [employer] [facility] EXCHANGE INDIVIDUAL [employer] [facility] EXCHANGE INDIVIDUAL [employer] [facility] [employer]CHANGE INDIVIDUAL [employer] [facility] [employer]CH[employer] INDIVIDUAL [employer] [facility] EXCHANGE INDIVIDUAL [employer] [facility] EXCHANGE INDIV[employer]UAL [place] [address] [place] [address] IN[address] [facility] [facility] EXCHANGE INDIVIDUAL [employer] Care Teams Petal Cutter Relationship Specialty Start Date End Date Ted Aguirre MD PCP - General Family Medicine 01/18/14 External, Provider 01/17/14 Dionte Alexis MD [address] [facility] [address] [place] [address] Orthopaedics 01/18/14 Quang Moreno MD [address] [place] [address] [address] [place] [address] Orthopaedics 03/20/18 Sharmaine Harris PAChristelC [address] [place] [address] [place] [address] Orthopaedic Surgery 04/18/18 Provider, Generic External Data 11/09/21 Provider, Abstract, [facility] PROVIDER 04/28/23 Chad Manning MD [address] [place] [id number] cant gang sawyer 05/09/23 Provider, Historical EPICARE PROVIDER 09/21/24 Caren Jacobs PA-C [address] [place] [phone] cant gang sawyer 09/27/24
--- OUTSIDE RECORDS SUMMARY | 2025-01-14 14:13 | XMS_ITS | Patient Health Record ---
Author Organization [facility] Address [address] [place] [address] Care Team Providers Care Eyeglass Assembler Name Role Phone Ted Aguirre Primary Care Provider [phone] Fredy OCHOA Beni Unavailable [phone] Gladys Rodarte Unavailable [phone] Allergies Allergen (clinical drug ingredient) Drug/Non Drug Allergy documented on EMR Reaction Allergy Type Onset Date Status Lulu Allergy 12 Hour (uncoded) Unknown Allergy Active grass (uncoded) sneezing Allergy Acti ve medroxyprogesterone Depo-Provera hives Drug Allergy Active miconazole Monistat 1 Combo Pack Unknown Drug Allergy Active predniSONE Unknown Drug Allergy Active Cortisone Unknown Drug Allergy Active Latex Latex Unknown Allergy Active losartan Losartan lip swelling Drug Allergy Acti ve Results Component Value Reference Range Notes COMPREHENSIVE METABOLIC PROF ILE (CPA) Reviewed date:08/07/2024 08:32:06 AM Interpretation: Performing Lab:MAIN LAB Notes/Report: R53.82 CHRONIC FATIGUE, UNSPECIFIED GLUCOSE,RANDOM 84 70-110 mg/dL BLOOD UREA NITROGEN 11 7-18 mg/dL CREATININE 0.8 0.6-1.3 mg/dL CALCULATED GFR > 60 Quantification of GFR below 60 ml/min/1.73m has more clinical implications than above that level. The formula used for est. GFR determination has not been validated for children, adults >70 years of age, the malnourished, obesity, , skeletal disorders, rapidly changing renal function, paraplegia, or dosing drugs with significant toxicity that are excreted by kidney. A 24-hour urine collection for creatinine clearance may be required in such cases. SODIUM 137 136-145 mmol/L POTASSIUM 3.8 3.5-5.1 mmol/L CHLORIDE 103 98-107 mmol/L CARBON DIOXIDE LEVEL 28 21-32 mmol/L ANION GAP 6 3-15 mmol/L CALCIUM LEVEL 9.5 8.1-9.7 mg/dL TOTAL PROTEIN 8.0 6.4-8.2 g/dL ALBUMIN 3.8 3.4-5.0 g/dL BILIRUBIN,TOTAL 0.4 0.2-1.0 mg/dL AST/SGOT 20 15-37 U/L ALT/SGPT 33 13-56 U/L ALKALINE PHOSPHATASE 90 45-117 U/L TSH WITH FT4 REFLEX (TSHR) Reviewed date:08/07/2024 08:32:06 AM Interpretation: Performing Lab:MAIN LAB Notes/Report: R53.82 CHRONIC FATIGUE, UNSPECIFIED TSH WITH FT4 REFLEX 1.31 0.36-3.74 uIU/mL CBC W/DIFF (CBCD) Reviewed date:08/07/2024 08:32:06 AM Interpretation: Performing Lab:MAIN LAB Notes/Report: R53.82 CHRONIC FATIGUE, UNSPECIFIED WHITE BLOOD CELL COUNT 12.0 4.3-10.0 K/mm3 RED BLOOD CELL COUNT 5.13 3.8-5.80 M/mm3 HEMOGLOBIN 14.7 12.0-15.0 gm/dL HEMATOCRIT 43.5 36.0-45.0 % MCV 84.8 80-100 fl MCH 28.7 27-33 pg MCHC 33.8 32.0-36.0 g/dL RDW-CV 13.6 11.0-18.0 % PLATELET COUNT 353 150-400 K/mm3 NEUTROPHILS % 47.9 LYMPHOCYTES % 39.5 MONOCYTES % 7.2 EOSINOPHIL % 4.3 BASOPHILS% 0.8 LYMPHOCYTES # 4.7 1.0-3.0 K/mm3 MONOCYTES # 0.9 0.0-0.9 K/mm3 EOSINOPHILS # 0.5 0.0-0.45 K/mm3 BASOPHILS# 0.1 0-0.2 K/mm3 IMMATURE GRANS 0.3 <=1 % IMMATURE GRANS# 0.0 0.00-0.04 K/mm3 NRBC (AUTO) 0 0.0-0.026 % VITAMIN D HYDROXY TOTAL (VD2 5) Reviewed date:08/07/2024 08:32:06 AM Interpretation: Performing Lab:MAIN LAB Notes/Report: R53.82 CHRONIC FATIGUE, UNSPECIFIED VIT D HYDROXY TOTAL 21.0 25-80 mg/mL LIPID PROFILE (FASTING LABS ) (LIPD) Reviewed date:08/07/2024 08:32:06 AM Interpretation: Performing Lab:MAIN LAB Notes/Report: R53.82 CHRONIC FATIGUE, UNSPECIFIED CHOLESTEROL LEVEL 286 0-200 mg/dL DESIRABLE: LESS THAN 200 MG/DL BORDERLINE: 200-239 MG/DL HIGH: GREATER THAN 240 MG/DL HDL CHOLESTEROL 56 40-60 mg/dL TRIGLYCERIDES LEVEL 336 30-150 mg/dL NORMAL: LESS THAN 150 MG/DL BORDERLINE HIGH: 150 - 199 MG/DL HIGH: 200 - 499 MG/DL VERY HIGH GREATER THAN 499 MG/DL LDL CHOLESTEROL CALCULATED 163 100 mg/dL OPTIMAL: LESS THAN 100 MG/DL ABOVE OPTIMAL: 100 - 129 MG/DL BORDERLINE HIGH: 130 - 159 MG/DL HIGH: 160 - 189 MG/DL VERY HIGH: GREATER THAN 189 MG/DL CHOLESTEROL RISK RATIO 5.107 ZZPAP SCREENING THIN LAYER ( DO NOT USE) Reviewed date:03/05/2024 01:56:18 PM Interpretation: Performing Lab:MAIN LAB Notes/Report: TISSUES: Female genital system ADDENDUM Addendum 1 Entered: 03/05/24-1220 HPV High Risk: not detected Testing performed at [facility] ([address] [place] [address]) by the FDA approved [employer] [place] HPV HR method failed to detect the presence of any of the following high-risk HPV types (16, 18, 31, 33, 35, 39, 45, 51, 52, 56, 58, 59, 66, 68) typically associated with all grades of squamous intraepithelial lesions, especially high grade squamous intraepithelial lesions and invasive cancer of the cervix. NOTE: This test does not detect the presence of low-risk types of HPV, which may be present. Addendum Signed INO LANDERS 03/05/24 1220 CLINICAL HISTORY Specimen ThinPrep pap, 1 slide processed, Cervical/Endocervical sampling Clinical History Submitted Menstrual Status LMP: 09/06/23 Clinical Information Screening test ___ FINAL DIAGNOSIS ADEQUACY SATISFACTORY FOR EVALUATION: ENDOCERVICAL/TRANSFORMATION ZONE PRESENT GENERAL CATEGORIZATION NEGATIVE FOR INTRAEPITHELIAL LESION OR MALIGNANCY Interpretation CELLULAR CHANGES ASSOCIATED WITH: INFLAMMATION COCCOBACILLI - BACTERIAL VAGINOSIS HPV with reflex genotype cotesting has been ordered per physician. ThinPrep Analysis Successfully processed by ThinPrep Switch Crew Supervisor/Autoscan/Manual Review CLINICAL HISTORY (Continued) Screened by [facility] CT(ASCP) at [place] [address] Gynecologic cytology is a screening test with associated false negative results. Signed INO LANDERS 03/05/24 1218 END OF REPORT LIQUID PAP CYTOLOGY See Report Below HPV HIGH RISK Reviewed date:03/05/2024 01:56:18 PM Interpretation: Performing Lab:[facility] Notes/Report: Z12.4 ENCOUNTER FOR SCREENING FOR MALIGNANT NEOPLASM OF CERVIX HPV NEG High Risk: Not Detected Testing by the FDA approved [employer] [place] HPV HR method failed to detect the presence of any of the following high-risk HPV types (16, 18, 31, 33, 35, 39, 45, 51, 52, 56, 58, 59, 66, 68) typically associated with all grades of squamous intraepithelial lesions, especially high grade squamous intraepithelial lesions and invasive cancer of the cervix. NOTE: This test does not detect the presence of low-risk types of HPV, which may be present. Reason For Referral No Information Medications Medication SIG (Take, Route, Frequency, Duration) Notes Start Date End Date Status Diflucan 150 MG 1 tablet Orally Once for 1 dose 08/28/2024 Active predniSONE 20 MG 1 tablet Orally Twic e a day for 5 days 08/27/2024 Active Atomoxetine HCl 10 MG 1 capsule Orally o nce a day Active Vitamin D3 25 MCG (1000 UT) 1 tablet Ora lly Once a day 08/07/2024 Active Albuterol Sulfate (2.5 MG/3ML) 0.083% 3 ml Inhalation every 4 hrs prn cough or wheeze prn 06/10/2020 Active Budesonide-Formoterol Fumarate 80-4.5 MCG/ACT 2 puffs Inhalation Twice daily and rinse mouth after 08/27/2024 Active Hair Skin & Nails Ac tive dilTIAZem HCl ER 240 MG 1 capsule Orally Once a day Active Amoxicillin-Pot Clavulanate 875-125 MG 1 tablet Orally Twice a day for 7 days 08/27/2024 Active traZODone HCl 50 MG 1 tablet at bedtime as needed Orally Once a day Active Albuterol Sulfate HFA 108 (90 Base) MCG/ACT 1 puff as needed Inhalation every 4 hrs 06/11/2024 Active Immunizations Vaccine Route Administration Date Status Comme nts DTaP less than 7 yrs old; IM use Unknown 1992 Administered DTaP (Diphtheria-Teta nus-acellular Pertussis) DTaP less than 7 yrs old; IM use Unknown 1992 Administered DTaP (Diphtheria-Teta nus-acellular Pertussis) DTaP less than 7 yrs old; IM use Unknown 02/20/1993 Administered DTaP (Diphtheria-Teta nus-acellular Pertussis) DTaP less than 7 yrs old; IM use Unknown 11/12/1993 Administered DTaP (Diphtheria-Teta nus-acellular Pertussis) DTaP less than 7 yrs old; IM use Unknown 03/15/1997 Administered DTaP (Diphtheria-Teta nus-acellular Pertussis) Hep A, adult Unknown 10/09/2013 Administered Havrix -ad ult dose (HepA) Hep B pedi/adolescent 3 dose Unknown 1992 Administered Hepatitis B (pedi/adol, 3-dose schedule) Hep B pedi/adolescent 3 dose Unknown 01/21/1993 Administered Hepatitis B (pedi/adol, 3-dose schedule) Hep B pedi/adolescent 3 dose Unknown 03/15/1997 Administered Hepatitis B (pedi/adol, 3-dose schedule) Hib 4 dose schedule Unknown 1992 Administered Hae mophilus influenza b (Hib), PRP-T (4-dose) Hib 4 dose schedule Unknown 1992 Administered Hae mophilus influenza b (Hib), PRP-T (4-dose) Hib 4 dose schedule Unknown 04/20/1993 Administered Hae mophilus influenza b (Hib), PRP-T (4-dose) Hib 4 dose schedule Unknown 11/12/1993 Administered Hae mophilus influenza b (Hib), PRP-T (4-dose) HPV quadrivalent, 3 dose schedule Unknown 10/09/2013 Administered Gardasil (HPV4) Meningococcal (MCV4) Unknown 10/09/2013 Administered Menactra (Meningococcal MCV4P) MMR virus vaccine, live, for subcutaneous use Unknown 11/12/1993 Administered MMR (Rsntewe-Pnhzo-E ubella), live MMR virus vaccine, live, for subcutaneous use Unknown 03/15/1997 Administered MMR (Tcndsce-Zsepd-E ubella), live Polio, IM Unknown 1992 Administered IPV Poliovir us, inactivated Polio, IM Unknown 1992 Administered IPV Poliovir us, inactivated Polio, IM Unknown 11/12/1993 Administered IPV Poliovir us, inactivated Polio, IM Unknown 03/15/1997 Administered IPV Poliovir us, inactivated Tdap Unknown 12/01/2011 Administered Tdap (Tetanu s toxoid, reduced DTaP adsorbed) Tdap IM Intramuscular 09/27/2022 Administered Social History Tobacco Use: Social History Observation Description Date Details (start date - stop date) Never Smoker NA - NA Tobacco Use/Smoking Question Answer Notes Are you a nonsmoker Tobacco use other than smoking: Question Answer Notes Are you an other tobacco user? No Problems Problem Type SNOMED Code ICD Code Onset Dates Problem Status W/U Status Risk Notes Problem 872316025 Mixed hyperlipidemia (E78.2) Active confirmed Problem 21220160 Other chronic pa in (G89.29) Active confirmed Problem Body mass index 30.0 0 to 34.99 (654346682558601) Body mass index (BMI) 34.0-34.9, adult (Z68.34) Active confirmed Problem Obese class II (681907252468724) Body mass index (BMI) 35.0-35.9, adult (Z68.35) Active confirmed Problem Body mass index 35.0 0 to 39.99 (688219908700238) Body mass index (BMI) 36.0-36.9, adult (Z68.36) Active confirmed Problem Body mass index 35.0 0 to 39.99 (192426583540360) Body mass index (BMI) 37.0-37.9, adult (Z68.37) Active confirmed Problem Body mass index 35.0 0 to 39.99 (602732372273219) Body mass index (BMI) 38.0-38.9, adult (Z68.38) Active confirmed Problem Body mass index 40+ - severely obese (214774890) Body mass index (BMI) 40.0-44.9, adult (Z68.41) Active confirmed Problem Latex allergy (041654971) Latex allergy status (Z91.040) Active confirmed Problem 56925586 Essential hypertension (I10) Active confirmed Problem Vitamin D deficiency (65176323) Vitamin D deficiency (E55.9) Active confirmed Problem 024833240 Mild intermitten t asthma without complication (J45.20) Active confirmed Problem 122870594 Depression with anxiety (F41.8) Active confirmed Problem 197079260 Gastroesophageal reflux disease, esophagitis presence not specified (K21.9) Active confirmed Problem Kidney stone (88400912) Kidney stones (N20.0) Active confirmed Problem Seasonal allergy (342096161) Seasonal allergies (J30.2) Active confirmed Problem 118633560 Insomnia, unspecified type (G47.00) Active confirmed Problem Gastroesophageal reflux disease (197648875) GERD without esophagitis (K21.9) Active confirmed Problem 573204487 Endometriosis (N80.9) Active confirmed Problem 69848186 Nephrolithiasis (N20.0) Active confirmed Problem 17862427 Chronic fatigue (R53.82) Active confirmed Problem 57934506 Hypertension, essential (I10) Active confirmed Problem 156244085 Uncomplicated asthma, unspecified asthma severity (J45.909) Active confirmed Problem 418264448 Menorrhagia with irregular cycle (N92.1) Active confirmed Problem Palpitations (40981668) Palpitation (R00.2) Active confirmed Problem 130827678 Moderate persist ent asthma with exacerbation (J45.41) Active confirmed Problem Infectious mononucleosis (172864835) Mononucleosis (B27.90) Active confirmed Problem 830981032395 Excessive daytim e sleepiness (G47.19) Active confirmed Problem 04970028771233 DUB (dysfunction al uterine bleeding) (N93.8) Active confirmed Problem 20017878 Elevated blood protein (E88.09) Active confirmed Problem 345231333 Elevated hemoglo bin (D58.2) Active confirmed Problem 35572622 Elevated cholesterol (E78.00) Active confirmed Problem 038512487 Mild persistent asthma with exacerbation (J45.31) Active confirmed Problem 464338016 Asthma exacerbation, mild (J45.901) Active confirmed Problem 98929778 Allergic rhiniti s, unspecified seasonality, unspecified trigger (J30.9) Active confirmed Problem Attention deficit hyperactivity disorder (670411632) Attention deficit hyperactivity disorder (ADHD), other type (F90.8) Active confirmed Problem hypercholesterolemia (disorder) (50833046) Hypercholesteremia (E78.00) Active confirmed Vital Signs Heart Rate 98 /min 08/27/2024 Temperature 97.5 degrees Fahrenheit 08/27/2024 Oximetry 97 % 08/27/2024 Blood pressure diastolic 66 mm Hg 08/27/2024 Weight-kg 113.49 kg 08/27/2024 Height 66.0 in 08/27/2024 Blood pressure systolic 124 mm Hg 08/27/2024 Weight 250.2 lbs 08/27/2024 BMI 40.38 kg/m2 08/27/2024 Encounters Encounter Location Date Provider Diagnosis [address] [address] 01/31/2024 Gladys Rodarte Depression with anxi ety F41.8 ; Annual physical exam Z00.00 ; Hypertension, essential I10 ; Mild intermittent asthma without complication J45.20 ; Mixed hyperlipidemia E78.2 ; Endometriosis N80.9 ; GERD without esophagitis K21.9 ; Abnormal weight gain R63.5 ; Impaired fasting glucose R73.01 ; Vitamin D deficiency E55.9 ; Depression screening Z13.89 and BMI 39.0-39.9,adult Z68.[address] [address] 08/06/2024 Ted Aguirre Hypertension, essent ial I10 ; Chronic fatigue R53.82 ; Depression with anxiety F41.8 ; Mild intermittent asthma without complication J45.20 ; Mixed hyperlipidemia E78.2 ; Endometriosis N80.9 ; Vitamin D deficiency E55.9 ; Depression screening Z13.89 and BMI 40.0-44.9, adult Z68.[address] [address] 02/23/2024 Beni Daniel DO Encounter for screen ing for human papillomavirus (HPV) Z11.51 ; Gynecologic exam normal Z01.419 ; Cervical cancer screening Z12.4 and Cervical smear, as part of routine gynecological examination Z01.[address] [address] 06/11/2024 Gladys Rodarte Acute cough R05.1 an d Asthma exacerbation, mild J45.[address] [address] 08/27/2024 Ted Aguirre Acute non-recurrent sinusitis, unspecified location J01.90 and Mild persistent asthma with exacerbation J45.31 [facility] [address] [employer] [address] [id number] 03/05/2024 Beni Daniel DO [address] [address] 06/11/2024 Gladys Rodarte [address] [address] 06/15/2024 Gladys Rodarte [address] [address] 08/07/2024 Ted Aguirre Vitamin D deficiency E55.9 and Hypercholesteremia E78.[address] [address] 08/28/2024 Ted Aguirre Assessments Encounter Date Diagnosis (ICD Code) Assessment Notes Treatment Notes Treatment Clinical Notes Section Notes 01/31/2024 Depression with anxiety (ICD-10 - F41.8) 02/23/2024 Encounter for screening for human papillomavirus (HPV) (ICD-10 - Z11.51) 02/23/2024 Gynecologic exam normal (ICD-10 - Z01.419) 06/11/2024 Asthma exacerbation, mild (ICD-10 - J45.901) 06/11/2024 Acute cough (ICD-10 - R05.1) 01/31/2024 Annual physical exam (ICD-10 - Z00.00) Immunizations - up to date Preventative Health Maintenance - schedule pap, Discussed safety measures, healthy diet, and tolerated exercise. 08/06/2024 Chronic fatigue (ICD-10 - R53.82) 08/06/2024 Hypertension, essential (ICD-10 - I10) 08/07/2024 Vitamin D deficiency (ICD-10 - E55.9) 08/27/2024 Acute non-recurrent sinusitis, unspecified location (ICD-10 - J01.90) 08/27/2024 Mild persistent asth ma with exacerbation (ICD-10 - J45.31) 08/07/2024 Hypercholesteremia (ICD-10 - E78.00) 08/06/2024 Depression with anxiety (ICD-10 - F41.8) 01/31/2024 Hypertension, essential (ICD-10 - I10) 02/23/2024 Cervical cancer screening (ICD-10 - Z12.4) 02/23/2024 Cervical smear, as part of routine gynecological examination (ICD-10 - Z01.419) 01/31/2024 Mild intermittent asthma without complication (ICD-10 - J45.20) 08/06/2024 Mild intermittent asthma without complication (ICD-10 - J45.20) 08/06/2024 Mixed hyperlipidemia (ICD-10 - E78.2) 01/31/2024 Mixed hyperlipidemia (ICD-10 - E78.2) 01/31/2024 Endometriosis (ICD-1 0 - N80.9) Continue with specialist. 08/06/2024 Endometriosis (ICD-1 0 - N80.9) gyne f/u 01/31/2024 GERD without esophagitis (ICD-10 - K21.9) 08/06/2024 Vitamin D deficiency (ICD-10 - E55.9) 01/31/2024 Abnormal weight gain (ICD-10 - R63.5) contineu diet and exercise changes 08/06/2024 Depression screening (ICD-10 - Z13.89) 08/06/2024 BMI 40.0-44.9, adult (ICD-10 - Z68.41) 01/31/2024 Impaired fasting glucose (ICD-10 - R73.01) 01/31/2024 Vitamin D deficiency (ICD-10 - E55.9) 01/31/2024 Depression screening (ICD-10 - Z13.89) 01/31/2024 BMI 39.0-39.9,adult (ICD-10 - Z68.39) Plan Of Treatment Pending Test Test Name Order Date Chest X-ray PA and lateral (56847) 05/07 Holter Monitor Test 24 hr (06994) 2017 X ray : SINUSES COMP MIN 3 VIEW (95609) 04/23/2016 CBC 02/08/2022 CBC W/DIFF (CBCD) 01/31/2024 COMPREHENSIVE METABOLIC PROFILE (CPA) COMPREHENSIVE METABOLIC PROFILE (CPA) HbA1C (A1CH) 01/31/2024 URINE CULTURE (URNC) 11/07/2019 URINE CULTURE (URNC) 09/05/2018 VITAMIN D HYDROXY TOTAL (VD25) 4 LIPID PROFILE (FASTING LABS) (LIPD) 11/2023 LIPID PROFILE (FASTING LABS) (LIPD) 01/25 CT Scan : Abdomen and Pelvis wo (86050) 09/05/2018 X ray : FOOT LT MIN 3 VIEWS (18114) 0 11/26/2021 EKG RHC (97911) 07/04/2017 Sleep Study (Home) (G0399) (40133) 08/07 IRRIGATION WORKER Ultrasound : Transabdominal / Transv aginal (30034 and 16297) 12/27/2022 Future Test Test Name Order Date VITAMIN D HYDROXY TOTAL (VD25) 5 LIPID PROFILE (FASTING LABS) (LIPD) 10/25 Next Appt Details Provider Name:Hi Pierre, 03/04/2025 02:00:00 PM, [address] [place] [address] [place], [id number], Insurance Providers Payer Name Payer Address Payer Phone Subscriber Number Group Number Insured Name Patient Relationship to Insured Coverage Start Date Coverage End Date [facility] [address] [place] [id number] [place], Rita Self - patient is the insured Medical (General) History Medical History History ICD Code Syrinx--congenital per pt Depression with anxiety F41.8 Mononucleosis B27.90 Kidney stones (03/2017) Kidney stones N20.0 Latex allergy status Z91.040 Uncomplicated asthma, unspecified asthma severity J45.909 Asthma exacerbation, mild J45.901 Palpitation R00.2 Seasonal allergies J30.2 endometriosis Attention deficit hyperactivity disorder (ADHD), other type F90.8 Vitamin D deficiency E55.9 Surgical History Surgery Date(Month/Year) lap cholecystectomy--Dr. Sylvester Prieto on 12/22/2015 Left club foot repair--4th grade Kidney stone removed 04/19/2017 right hand cyst removal 11/2019 deviated septum 04/2020 bilat ovary removals- still present per Galina 08/20/2022 Robotic-assisted laparoscopic of adhesio ns 02/25/2023 Hospitalization History Reason Date(Month/Year) Kidney stone removal - ICU 04/19/2017 asthma exacerbation, pneumonia/bronchiti s 04/2016
--- OUTSIDE RECORDS SUMMARY | 2025-01-14 14:13 | XMS_ITS | Clinical Summary ---
Author Organization [facility] Ambulatory Address [address] [place] [address] Phone Care Team Providers Care Chief Deputy Court Clerk Name Role Phone External, Provider Unavailable Unavailable Ted Aguirre MD Primary Care Provider [phone] Dionte Alexis MD Unavailable Quang Moreno MD Unavailable [phone] Sharmaine Harris PA-C Unavailable [phone] Provider, Generic External Data Unavailable Unavailable Provider, Quita LINARES Unavailable Unavailabl e Chad Manning MD Unavailable Provider, Historical Unavailable Unavailable Caren Jacobs PA-C Unavailable [phone] Source Comments This information has been disclosed [...] except as provided at sections 2.12(c)(5) and 2.65.[facility] Ambulatory Allergies Active Allergy Reactions Criticality Noted [...] Date Diagnosed Date Finger mass, right 04/18/2018 Family History Medical History Relation Comments Adverse Anesthesia Reaction Biological Mother Diabetes Maternal Grandmother Cancer Paternal Grandmother Dementia/Neurocognitive Disorder Paternal Grandm other Stroke Paternal Grandmother Tuberculosis Paternal Grandmother Migraines Sister Relation Status Comments Biological Mother Maternal Grandmother Paternal Grandmother Sister Social History Tobacco Use Types Packs/Day Years [...] 07/25/2023 1:54 PM EST Plan of Treatment Health Maintenance Due Date Last Done Comments Folic Acid Supplementation 1992 HIV Screening 2007 Advance Directives 2010 Hepatitis C Screen 2010 DTaP/Tdap/Td Vaccine (1 - Tdap) 2011 Cervical Cancer Screening 2013 Colposcopy 2013 HPV/Cotest 2013 Pap Smear 2013 HPV Vaccine (1 - 3-dose SCDM series) 2019 COVID-19 Vaccine (2023-2 5 season) 2024 Depression Screening 06/27/2024 Flu Vaccine (#1) 03/27/2025 Pneumococcal Vaccine Aged Out No long er eligible based on patient's age to complete this topic Insurance [facility] EXCHANGE INDIV[employer]UAL PREMIUM [facility] [employer] EXCHANGE [employer]MI[employer] Member Subscriber Plan / Payer (Ef fective 2024-) Name:Rita Napoles Relation to Subscriber:Self Name:Rita Napoles Payer ID:Not on file Type:Indemnity Address: [place] [phone] EXCHANGE INDIVIDUAL PREMIUM [facility] EXCHANGE INDIVIDUAL PREMIUM [facility] CASUALTY SERVICES [facility] EXCH[employer]UAL PREMIUM Care Teams Chief Deputy Court Clerk Relationship Specialty Start Date End Date Ted Aguirre MD PCP - General Family Medicine 01/18/14 External, Provider 01/17/14 Dionte Alexis MD [address] [facility] [address] [place] [address] Orthopaedics 01/18/14 Quang Moreno MD [address] [place] [address] [address] [place] [address] Orthopaedics 03/20/18 Sharmaine Harris PA-C [address] [place] [address] [address] [place] [address] Orthopaedic Surgery 04/18/18 Provider, Generic External Data 11/09/21 Provider, Quita, [facility] PROVIDER 04/28/23 Chad Manning MD [address] [place], [place] [address] [place] [address] fire officer 05/09/23 Provider, Historical [employer] PROVIDER 09/21/24 Caren Jacobs PA-C [address] [place] [id number] fire officer 09/27/24
[2025-01-14 14:22] LABS: NT Pro Brain Natriuretic Pep. < 20.0 pg/mL (0-125)
[2025-01-14 14:23] LABS: Bilirubin,Urine Negative (Negative); Color,Urine YELLOW (Yellow); Glucose,Urine (UA) Negative (Negative); Ketones,Urine Negative (Negative); Leukocyte Esterase,Urine Negative (Negative); PH,Urine 6.0 (5.0-8.5); Protein,Urine TRACE (Negative); Specific Gravity, Urine 1.020 (1.005-1.030); Urobilinogen,Urine 0.2 EU/dl (0.2)
[2025-01-14 14:27] LABS: Procalcitonin 0.055 ng/mL (0.0-2.0)
[2025-01-14 14:28] LABS: Urine Pregnancy, HCG Qual. Negative (Negative)
[2025-01-14 14:30] LABS: Free Thyroxine Index 3.5 ug/dL (5.93-13.13); T4 (Thyroxine) 10.1 ug/dl (5.53-11.0); Triiodothryronine (T3) Uptake 35 % (23.5-40.5)
[2025-01-14 14:32] LABS: WBC,Urine Occasional #/hpf (0-3)
[2025-01-14 14:33] LABS: Bacteria,Urine 1+ /lpf; Squamous Epithelial Cell,Urine 20-50 #/hpf (0-5)
[2025-01-14 14:43] LABS: Thyroid Stimulating Hormone 1.40 uIU/mL (0.465-4.68)
[2025-01-14 14:47] LABS: Troponin I < 0.01 ng/ml (0.00-0.034)
[2025-01-14 15:39] LABS: Hepatitis C Ab Qual. W/ RFX NEGATIVE (Negative)
[2025-01-14 15:50] LABS: INR 0.99 (0.9-1.1); Prothrombin Time 11.0 seconds (10.1-12.5)
[2025-01-14 16:28] LABS: Troponin I < 0.01 ng/ml (0.00-0.034)
[2025-01-14 16:54] LABS: D-Dimer 0.89 ug/mL (0.0-0.5)
== END 2025-01-14 16:47 | disposition home or self-care (01) ==
PROVIDERS: Physician Assistant; Emergency Provider Student in an Organized Health Care Education/Training Program
DX: R07.9 Chest pain, unspecified (principal)
CPT/HCPCS: 71045; 80053; 81001; 81025; 83735; 83880; 84145; 84436; 84443; 84479; 84484; 85025; 85378; 85610; 86803; 87389; 93005; 96374; 99285; J2405

== ENCOUNTER 2025-03-07 08:18 | Emergency (ER) | payer OTHER, SELFPAY ==
--- OUTSIDE RECORDS SUMMARY | 2025-03-04 10:00 | XMS_ITS ---
Author Organization [facility] Address [address] [place] [address] Care Team Providers Care Custom Studio Coordinator Name Role Phone Carla LINARES, Ted Primary Care Provider [phone] Janak MOYA, Hi Haskins [phone] Allergies Allergen (clinical drug ingredient) Drug/Non Drug [...] Losartan lip swelling Drug Allergy Acti ve REASON FOR VISIT annual, 6 months Social History Tobacco Use: Social History Observation Description Date Details (start date - stop date) Never Smoker NA - NA Tobacco Use/Smoking Question Answer Notes Are you a nonsmoker Tobacco use other than smoking: Question Answer Notes Are you an other tobacco user? No Encounters Encounter Location Date Provider Diagnosis [address] [place] [address] 03/04/2025 Hi MOYA Hypertension, essent ial I10 ; Chronic fatigue R53.82 ; Depression with anxiety F41.8 ; Mild intermittent asthma without complication J45.20 ; Mixed hyperlipidemia E78.2 ; Endometriosis N80.9 ; Vitamin D deficiency E55.9 ; Depression screening Z13.89 and BMI 40.0-44.9, adult Z68.41 Assessments Encounter Date Diagnosis (ICD Code) Assessment Notes Treatment Notes Treatment Clinical Notes Section Notes 03/04/2025 Hypertension, essential (ICD-10 - I10) 03/04/2025 Chronic fatigue (ICD-10 - R53.82) 03/04/2025 Depression with anxiety (ICD-10 - F41.8) 03/04/2025 Mild intermittent asthma without complication (ICD-10 - J45.20) 03/04/2025 Mixed hyperlipidemia (ICD-10 - E78.2) 03/04/2025 Endometriosis (ICD-10 - N80.9) 03/04/2025 Vitamin D deficiency (ICD-10 - E55.9) 03/04/2025 Depression screening (ICD-10 - Z13.89) 03/04/2025 BMI 40.0-44.9, adult (ICD-10 - Z68.41) Plan Of Treatment No Information Progress Notes * Rita NAPOLES MDOB:[birth year] (34 yo F)Acc No.[id number]:03/04/2025 Progress Notes Patient: Karo Rita BRADLEY Appointment Provider: NITA Best :1990 A ge:34 Y S ex:Female Date:03/04/2025 Address:[address] [place] [address] [id number] Pcp:Ted Aguirre MD Subjective: * Chief Complaints: * 1 . Annual, 6 months. * HPI: D epression: Patient reports no worsening in condition. Compliance with medication is confirmed. Tolerance of medication has not been a problem. There are no new aspects of condition. Pt sees psychiatry and counseling. H ypertension Follow UP: Patient reports no worsening of condition - 121/74 at home. Compliance with medication is confirmed. Tolerance of medication has not been a problem. There are no new aspects of condition. A sthma: Patient reports no worsening of condition. Compliance with medication is confirmed. Tolerance of medication has not been a problem. There are no new aspects of condition. H yperlipidemia: Patient reports no worsening of condition. No meds. F ollow up: Endometriosis. She is following with gyne at [facility]. She had a salpino- oophorectomy but ovaries were seen on subsquent imaging. C onstitutional: Vitamin D deficiency. Replaced 2023. G eneral: Annual exam: 01/30/24 Pap: annually - pt needs to schedule- abnormal pap in past - Mammo: n/a Colon Cancer Screening: n/a Bone Density: n/a Hepatitis C Screening: none Flu vax: declines Pneumonia Vax: n/a Shingrix Vax: n/a Covid Vax: none Tetanus: 09/2022 Labs: 11/[address] and dentist r egularly. diet - cutting out junk food - calorie counting 2000 calories, increased protein. pt started going to the gym - 2 miles on treadmil, lifting - 3 days per week. D epression Screening: PHQ-9 L ittle interest or pleasure in doing things?Not at all F eeling down, depressed, or hopeless N ot at all T rouble falling or staying asleep, or sleeping too much N ot at all F eeling tired or having little energy N ot at all P oor appetite or overeating N ot at all F eeling bad about yourself or that you are a failure, or have let yourself or your family down N ot at all T rouble concentrating on things, such as reading the newspaper or watching television N ot at all M oving or speaking so slowly that other people could have noticed; or the opposite, being so fidgety or restless that you have been moving around a lot more than usual N ot at all T houghts that you would be better off or of hurting yourself in some way N ot at all T otal Score 0 * Medical History: S yrinx- congenital per pt, Depression with anxiety, Mononucleosis, Kidney stones (03/2017), Kidney stones, Latex allergy status, Uncomplicated asthma, unspecified asthma severity, Asthma exacerbation, mild, Palpitation, Seasonal allergies, Endometriosis, Attention deficit hyperactivity disorder (ADHD), other type, Vitamin D deficiency. * Automatic Driller And Reamer History: L ast pap smear date . A bnormal pap smear n one. D ate of Last Period 0 09/06/2023. S exually Transmitted Diseases (STDs): N O HISTORY OF STDs. S exual activity c urrently sexually active. * OB History: P regnancy Questions Total Pregnancies 0 * Surgical History: l ap cholecystectomy- Dr. Sylvester Villavicencio 12/22/2015, Left club foot repair- 4th grade , Kidney stone removed 04/19/2017, right hand cyst removal 11/2019, deviated septum 04/2020, bilat ovary removals- still present per [place] 08/20/2022, Robotic-assisted laparoscopic of adhesions 02/25/2023. * Hospitalization/Major Diagno stic Procedure: a sthma exacerbation, pneumonia/bronchitis 04/2016, Kidney stone removal - ICU 04/19/2017. * Family History: F ather: hypertension, hypertension, hyperlipidemia. M other: hypertension, hyperlipidemia. P aternal Grand Father: hypertension. P aternal Grand Mother: , lung cancer. 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 N o D o you fear losing your house? N o H ave you lost your utilities in the last 12 months? N o H as the lack of transportation kept you from going to appointments, getting medications, work or getting food? N o D o you worry the food you bought will run out before you get money to buy more or you do not have enough money to get more? N o D o you feel unsafe, physically or emotionally where you live? N o W hat date was this questionnaire completed??03/04/2025 S upplements: S upplements: hair/skin/nail vitamin. T obacco Use: T obacco Use/Smoking A re you a n onsmoker Tobacco use other than smoking A re you an other tobacco user? N o D rugs/Alcohol: D rugs H ave you used drugs other than those for medical reasons in the past 12 months? N o Do you smoke marijuana?: Denies. Do you drink alcohol?: No. * Allergies: M onistat 1 Combo Pack, Lulu Allergy 12 Hour, grass: sneezing, Latex, Losartan: lip swelling, Cortisone, Depo-Provera: hives, predniSONE. Objective: * Vitals: * Examination: G eneral Examination: GENERAL APPEARANCE: Well developed and nourished; appropriately groomed; in no apparent distress. SKIN: w arm and dry, no rashes. EYES: lids and lacrimal system are normal in appearance, pink conjunctiva. E/N/T: oral mucosa is normal, posterior pharynx shows no erythema or exudates. NECK/THYROID: Normal supple, no thyromegaly. LYMPH NODES: no cervical or supraclavicular adenopathy.? RESPIRATORY: normal respiratory rate and pattern with no distress, clear to auscultation bilaterally, good air movement. CARDIOVASCULAR: normal rate, regular rhythm, no edema.? GASTROINTESTINAL: normal bowel sounds nontender no organomegaly. MUSCULOSKELETAL: normal gait, normal overall tone. NEUROLOGIC: nonfocal, alert and oriented. PSYCH: good eye contact, cooperative with exam. ? Assessment: * Assessment: 1. H ypertension, essential - I10 (Primary) 2 . C hronic fatigue - R53.82? 3. D epression with anxiety - F41.8 4 . M ild intermittent asthma without complication - J45.20 5 . M ixed hyperlipidemia - E78.2 6 . E ndometriosis - N80.9 7 . V itamin D deficiency - E55.9 ? 8 . D epression screening - Z13.89 9 . B AR 40.0-44.9, adult - Z68.41? Plan: * Treatment: * Procedure Codes: 3 725F SCREEN DEPRESSION PERFORMED, G8431 Positive Depression Screen, Plan Documented, G8510 Depression Screening negative, follow up not required * Billing Information: * Visit Code: * Procedure Codes: 3725F SCREEN DEPRESSION PERFORMED. G8431 Positive Depression Screen, Plan Documented. G8510 Depression Screening negative, follow up not required. * Electronic signature of NITA Hickey on 03/07/2025 at 08:45 AM EDT Sign off status: Pending * Appointment Provider: NITA Best Date: 03/04/2025 Generated for Christina priest/Jose Miguel/Jessicaitting on: 0 03/07/2025 08:45 AM EDT History and Physical Notes * HPI (History of Present Illness) Category Sub-Category Detail Notes Category Not es Depression Patient reports no worsening in condition. Compliance with medication is confirmed. Tolerance of medication has not been a problem. There are no new aspects of condition. Pt sees psychiatry and counseling. Hyperlipidemia Patient repor ts no worsening of condition. No meds. Hypertension Follow UP Patie nt reports no worsening of condition - 121/74 at home. Compliance with medication is confirmed. Tolerance of medication has not been a problem. There are no new aspects of condition. Asthma Patient reports no worsening of condition. Compliance with medication is confirmed. Tolerance of medication has not been a problem. There are no new aspects of condition. Depression Screening PHQ-9 Little inte rest or pleasure in doing things: Not at all Feeling down, depressed, or hopeless: No t at all Trouble falling or staying asleep, or sl eeping too much: Not at all Feeling tired or having little energy: N ot at all Poor appetite or overeating: Not at all Feeling bad about yourself o r that you are a failure, or have let yourself or your family down: Not at all Trouble concentrating on thi ngs, such as reading the newspaper or watching television: Not at all Moving or speaking so slowly that other people could have noticed; or the opposite, being so fidgety or restless that you have been moving around a lot more than usual: Not at all Thoughts that you would be b katia off or of hurting yourself in some way: Not at all Total Score: 0 Constitutional Vitamin D def iciency. Replaced 2023. General Annual exam: 01/30/24 Pap: annually - pt needs to schedule- abnormal pap in past - Mammo: n/a Colon Cancer Screening: n/a Bone Density: n/a Hepatitis C Screening: none Flu vax: declines Pneumonia Vax: n/a Shingrix Vax: n/a Covid Vax: none Tetanus: 09/2022 Labs: 11/[address] and dentist regularly. diet - cutting out junk food - calorie counting 2000 calories, increased protein. pt started going to the gym - 2 miles on treadmil, lifting - 3 days per week Follow up Endometriosis. She is following with gyne at [facility]. She had a salpino-oophorectomy but ovaries were seen on subsquent imaging. Examination Category Sub-Category Detail Notes Category Not es General Examination GENERAL APPEARANCE: Well dev eloped and nourished; appropriately groomed; in no apparent distress CARDIOVASCULAR: normal rate, regular rhythm, no edema GASTROINTESTINAL: normal bowel sounds nontender no organomegaly EYES: lids and lacrimal sy stem are normal in appearance, pink conjunctiva NECK/THYROID: Normal supple, no th yromegaly RESPIRATORY: normal respiratory r ate and pattern with no distress, clear to auscultation bilaterally, good air movement NEUROLOGIC: nonfocal, alert and oriented SKIN: warm and dry, no clara hes MUSCULOSKELETAL: normal gait, normal overall tone LYMPH NODES: no cervical or supra clavicular adenopathy PSYCH: good eye contact, co operative with exam E/N/T: oral mucosa is paul l, posterior pharynx shows no erythema or exudates
--- NOTE | 2025-03-07 08:25 | ED_ITS ---
Discharge Plan Referrals Follow up/Referrals: Provider,Referral, [Primary Care Provider, Medical] - See instructions Print Language Print Language: Vietnamese Discharge ED Provider: Cynthia Roman General Adult HPI General Stated complaint: stung by black wasp on left arm Time Seen by Provider: 03/07/25 08:25 History of Present Illness HPI narrative: Patient is a 34-year-old with past medical history significant for asthma, multiple anaphylactic allergies including dark chocolate, latex presents to the emergency department after being stung by a wasp at 715. Patient has pain in her left forearm with redness that is progressively swelling and redness growing since being stung. Patient has EpiPen's at home but they are . Patient did not give herself an EpiPen shot at home. No medications prior to arrival. No nausea vomiting diarrhea rashes. Patient has itching and mild shortness of breath since being stung. Related Data Allergies Allergy/AdvReac Type Severity Reaction Status Date / Time No Known Allergies Allergy Verified 01/14/25 13:36 [facility] Disclaimer: The information contained in this section may have been updated after the patient was seen, as this information can be updated by other users. Social History (Updated 01/14/25 @ 16:36 by NITA Baxter) Smoking Status: Never smoker alcohol intake: never current occupational status: employed Travel in the last 8 weeks?: None Have you lived/traveled outside [place] in past 30 days?: No Contact w/someone who lives/traveled outside US past 30 days?: No Exposure to someone with infectious disease in past 14 days?: No Do you have a fever (greater than 100.4 F or 38 C)?: No Have you tested positive for COVID-19?: No Exposed to someone with COVID-19 in past 14 days?: No Do you have a sore throat?: No Do you have a cough?: No Do you have any weakness?: No Do you have any diarrhea?: No Are you experiencing any unusual bleeding?: No Do you have any muscle aches/pain?: No Do you have any abdominal pain?: No Are you experiencing loss of taste or smell?: No ROS Obtained: Yes All systems reviewed & no additional complaints except as documented Physical Exam General General appearance: alert and in no apparent distress Eye Eye exam: Present normal appearance and EOMI; Absent PERRL ENT ENT exam: Present normal exam, normal oropharynx and other (no oropharyngeal swelling ) Chest Chest inspection: Present normal inspection; Absent symmetric chest wall rise Respiratory Respiratory exam: Present wheezes (mild insp and expiratory wheezing in all lung escalera); Absent respiratory distress or stridor Cardiovascular Cardiovascular exam: Present regular rate Abdominal Exam Abdominal exam: Present soft; Absent tenderness Neurological Exam Neurological exam: Present alert and oriented X3 Skin Skin exam: Present other (left forearm erythema and swelling with insect bite centrally, no wheals or rashes) Medical Decision Making Medical Records Screening: Per USPSTF and CDC recommendations, given the prevalence of disease in our region, it is our hospital?s policy to screen for HIV and viral Hepatitis for all patients aged 18 and over and those with ongoing risk factors. Richar Inquiry Pt receiving controlled substance: No Orders (Tests/Meds): ED MEDICATIONS Generic Name Dose Route Start Last Admin Trade Name Freq PRN Reason Stop Dose Admin Acetaminophen 1,000 mg 03/07/25 08:33 Acetaminophen 500mg Tab PO 03/07/25 08:34 ONCE ONE Albuterol/Ipratropium 9 ml 03/07/25 08:33 Ipratropium/Albuterol 3 Ml Neb IH 03/07/25 08:34 ONCE ONE Diphenhydramine HCl 25 mg 03/07/25 08:33 Diphenhydramine 25mg Capsule PO 03/07/25 08:34 ONCE ONE Famotidine 40 mg 03/07/25 08:33 Famotidine 20mg Tablet PO 03/07/25 08:34 ONCE ONE Ibuprofen 600 mg 03/07/25 08:33 Ibuprofen 600 Mg Tablet PO 03/07/25 08:34 ONCE ONE Medical Decision Narrative: In summary, this 34-year-old female presents to the emergency department today with insect bite. On initial evaluation patient is hemodynamically stable saturating appropriately on room air afebrile in no acute distress. Differential diagnosis includes but is not limited to anaphylaxis, mild allergic reaction, asthma exacerbation. Based on history and physical exam low suspicion for anaphylaxis and more suspicious for mild allergic reaction as patient has no facial swelling, no systemic rashes and has history of baseline asthma that is likely attributing to patient's wheezing today. Patient received 3 DuoNebs, Benadryl famotidine Tylenol ibuprofen Decadron for treatment. On reassessment patient has improvement of symptoms including wheezing. Recommended that patient continue taking Benadryl as needed for itching and keep ice at the insect bite to help with swelling. Represcribed EpiPen and Instructed on how to use in setting of anaphylaxis. Critical Care Critical Care Time Critical Care Time: No
[2025-03-07 08:29] VITALS: BP 188/124; PULSE 70; RESP 20; TEMP 36.5; O2SAT 100; BMI 39.5
--- OUTSIDE RECORDS SUMMARY | 2025-03-07 08:46 | XMS_ITS | Patient Health Record ---
Author Organization [facility] Address [address] [place] [address] Care Team Providers Care Computer Customer Support Specialist Name Role Phone Carla LINARES, Ted Primary Care Provider Cayden MOYA, Gladys Unavailable [phone] Ignacio MOYA, Hi Unavailable [phone] Allergies Allergen (clinical drug ingredient) Drug/Non Drug [...] ve Results Component Value Reference Range Notes CBC W/DIFF (CBCD) Reviewed date:08/07/2024 08:32:06 AM [...] 0.00-0.04 K/mm3 NRBC (AUTO) 0 0.0-0.026 % COMPREHENSIVE METABOLIC PROF ILE (CPA) Reviewed date:08/07/2024 [...] TSH WITH FT4 REFLEX 1.31 0.36-3.74 uIU/mL VITAMIN D HYDROXY TOTAL (VD2 5) Reviewed date:08/07/2024 08:32:06 AM Interpretation: Performing Lab:MAIN LAB Notes/Report: R53.82 CHRONIC FATIGUE, UNSPECIFIED VIT D HYDROXY TOTAL 21.0 25-80 mg/mL LIPID PROFILE ([facility]STING LABS) (LIPD) Reviewed date:08/07/2024 08:32:06 AM Interpretation: Performing [...] THAN 189 MG/DL CHOLESTEROL RISK RATIO 5.107 Reason For Referral No Information Medications Medication [...] for subcutaneous use Unknown 11/12/1993 Administered MMR (Zqkhmmu-Zfqyq-R ubella), live MMR virus vaccine, live, for subcutaneous use Unknown 03/15/1997 Administered MMR (Ygqovbg-Evcmm-V ubella), live Polio, IM Unknown 1992 Administered [...] Problem Status W/U Status Risk Notes Problem 110486379 Mixed hyperlipidemia (E78.2) Active confirmed Problem 45897118 Other chronic pa in (G89.29) Active confirmed Problem Body mass index 30.0 0 to 34.99 (619434572026361) Body mass index (BMI) 34.0-34.9, adult (Z68.34) Active confirmed Problem Obese class II (458291571193752) Body mass index (BMI) 35.0-35.9, adult (Z68.35) Active confirmed Problem Body mass index 35.0 0 to 39.99 (944059676474384) Body mass index (BMI) 36.0-36.9, adult (Z68.36) Active confirmed Problem Body mass index 35.0 0 to 39.99 (133616003050645) Body mass index (BMI) 37.0-37.9, adult (Z68.37) Active confirmed Problem Body mass index 35.0 0 to 39.99 (450742258671605) Body mass index (BMI) 38.0-38.9, adult (Z68.38) Active confirmed Problem Body mass index 40+ - severely obese (575861232) Body mass index (BMI) 40.0-44.9, adult (Z68.41) Active confirmed Problem Latex allergy (513208856) Latex allergy status (Z91.040) Active confirmed Problem 22549335 Essential hypertension (I10) Active confirmed Problem Vitamin D deficiency (82568552) Vitamin D deficiency (E55.9) Active confirmed Problem 717441457 Mild intermitten t asthma without complication (J45.20) Active confirmed Problem 398836305 Depression with anxiety (F41.8) Active confirmed Problem 532009813 Gastroesophageal reflux disease, esophagitis presence not specified (K21.9) Active confirmed Problem Kidney stone (24429060) Kidney stones (N20.0) Active confirmed Problem Seasonal allergy (571654931) Seasonal allergies (J30.2) Active confirmed Problem 449548535 Insomnia, unspecified type (G47.00) Active confirmed Problem Gastroesophageal reflux disease (056687832) GERD without esophagitis (K21.9) Active confirmed Problem 843980547 Endometriosis (N80.9) Active confirmed Problem 64751815 Nephrolithiasis (N20.0) Active confirmed Problem 43650770 Chronic fatigue (R53.82) Active confirmed Problem 24464589 Hypertension, essential (I10) Active confirmed Problem 051957723 Uncomplicated asthma, unspecified asthma severity (J45.909) Active confirmed Problem 650267924 Menorrhagia with irregular cycle (N92.1) Active confirmed Problem Palpitations (23365991) Palpitation (R00.2) Active confirmed Problem 893866334 Moderate persist ent asthma with exacerbation (J45.41) Active confirmed Problem Infectious mononucleosis (082415497) Mononucleosis (B27.90) Active confirmed Problem 987760544033 Excessive daytim e sleepiness (G47.19) Active confirmed Problem 20427939099163 DUB (dysfunction al uterine bleeding) (N93.8) Active confirmed Problem 90505303 Elevated blood protein (E88.09) Active confirmed Problem 528454660 Elevated hemoglo bin (D58.2) Active confirmed Problem 43050050 Elevated cholesterol (E78.00) Active confirmed Problem 907839054 Mild persistent asthma with exacerbation (J45.31) Active confirmed Problem 201522467 Asthma exacerbation, mild (J45.901) Active confirmed Problem 95423599 Allergic rhiniti s, unspecified seasonality, unspecified trigger (J30.9) Active confirmed Problem Attention deficit hyperactivity disorder (891991416) Attention deficit hyperactivity disorder (ADHD), other type (F90.8) Active confirmed Problem hypercholesterolemia (disorder) (36123335) Hypercholesteremia (E78.00) Active confirmed Vital Signs Heart Rate 98 /min 08/27/2024 Temperature 97.5 degrees Fahrenheit 08/27/2024 Oximetry 97 % 08/27/2024 Blood pressure diastolic 66 mm Hg 08/27/2024 Weight-kg 113.49 kg 08/27/2024 Height 66.0 in 08/27/2024 Blood pressure systolic 124 mm Hg 08/27/2024 Weight 250.2 lbs 08/27/2024 BMI 40.38 kg/m2 08/27/2024 Encounters Encounter Location Date Provider Diagnosis [address] [address] 08/06/2024 Ted Aguirre MD Hypertension, essent ial I10 ; Chronic fatigue R53.82 ; Depression with anxiety F41.8 ; Mild intermittent asthma without complication J45.20 ; Mixed hyperlipidemia E78.2 ; Endometriosis N80.9 ; Vitamin D deficiency E55.9 ; Depression screening Z13.89 and BMI 40.0-44.9, adult Z68.[address] [address] 06/11/2024 Gladys MOYA Acute cough R05.1 an d Asthma exacerbation, mild J45.[address] [address] 08/27/2024 Ted Aguirre MD Acute non-recurrent sinusitis, unspecified location J01.90 and Mild persistent asthma with exacerbation J45.[address] [address] 06/11/2024 Gladys MOYA [address] [address] 06/15/2024 Gladys MOYA [address] [address] 08/07/2024 Ted Aguirre MD Vitamin D deficiency E55.9 and Hypercholesteremia E78.[address] [address] 08/28/2024 Ted Aguirre MD [address] [address] 03/04/2025 Ted Aguirre MD Assessments Encounter Date Diagnosis (ICD Code) Assessment Notes Treatment Notes Treatment Clinical Notes Section Notes 06/11/2024 Asthma exacerbation, mild (ICD-10 - J45.901) 06/11/2024 Acute cough (ICD-10 - R05.1) 08/06/2024 Chronic fatigue (ICD-10 - R53.82) 08/06/2024 Hypertension, essential (ICD-10 - I10) 08/07/2024 Vitamin D deficiency (ICD-10 - E55.9) 08/27/2024 Acute non-recurrent sinusitis, unspecified location (ICD-10 - J01.90) 08/27/2024 Mild persistent asth ma with exacerbation (ICD-10 - J45.31) 08/07/2024 Hypercholesteremia (ICD-10 - E78.00) 08/06/2024 Depression with anxiety (ICD-10 - F41.8) 08/06/2024 Mild intermittent asthma without complication (ICD-10 - J45.20) 08/06/2024 Mixed hyperlipidemia (ICD-10 - E78.2) 08/06/2024 Endometriosis (ICD-1 0 - N80.9) gyne f/u 08/06/2024 Vitamin D deficiency (ICD-10 - E55.9) 08/06/2024 Depression screening (ICD-10 - Z13.89) 08/06/2024 BMI 40.0-44.9, adult (ICD-10 - Z68.41) Plan Of Treatment Pending Test Test Name Order Date Chest X-ray PA and lateral (57261) 05/07 Holter Monitor Test 24 hr (09800) 2017 X ray : SINUSES COMP MIN 3 VIEW (46662) 04/23/2016 CBC 02/08/2022 CBC W/DIFF (CBCD) 01/31/2024 COMPREHENSIVE METABOLIC PROFILE (CPA) COMPREHENSIVE METABOLIC PROFILE (CPA) HbA1C (A1CH) 01/31/2024 URINE CULTURE (URNC) 11/07/2019 URINE CULTURE (URNC) 09/05/2018 VITAMIN D HYDROXY TOTAL (VD25) LIPID PROFILE (FASTING LABS) (LIPD) 11/2023 LIPID PROFILE ([facility]STING LABS) (LIPD) 01/25 CT Scan : Abdomen and Pelvis wo (58667) 09/05/2018 X ray : FOOT LT MIN 3 VIEWS (36614) 0 11/26/2021 EKG RHC (15386) 07/04/2017 Sleep Study (Home) (G0399) (27943) 08/07 [employer] Ultrasound : Transabdominal / Transv aginal (23014 and 80330) 12/27/2022 Future Test Test Name Order Date VITAMIN D HYDROXY TOTAL (VD25) 5 LIPID PROFILE ([facility]ING LABS) (LIPD) 10/25 Insurance Providers Payer Name Payer Address Payer Phone Subscriber Number Group Number Insured Name Patient Relationship to Insured Coverage Start Date Coverage End Date [facility] [address] [place] [id number] Rita Milton Self - patient is the insured Medical (General) History Medical History History ICD Code Syrinx- congenital per pt Depression with anxiety F41.8 Mononucleosis B27.90 Kidney stones (03/2017) Kidney stones N20.0 Latex allergy status Z91.040 Uncomplicated asthma, unspecified asthma severity J45.909 Asthma exacerbation, mild J45.901 Palpitation R00.2 Seasonal allergies J30.2 endometriosis Attention deficit hyperactivity disorder (ADHD), other type F90.8 Vitamin D deficiency E55.9 Surgical History Surgery Date(Month/Year) lap cholecystectomy- Dr. Sylvester Prieto on 12/22/2015 Left club foot repair- 4th grade Kidney stone removed 04/19/2017 right hand cyst removal 11/2019 deviated septum 04/2020 bilat ovary removals- still present per [place] 08/20/2022 Robotic-assisted laparoscopic of adhesio ns 02/25/2023 Hospitalization History Reason Date(Month/Year) Kidney stone removal - ICU 04/19/2017 asthma exacerbation, pneumonia/bronchiti s 04/2016
--- OUTSIDE RECORDS SUMMARY | 2025-03-07 08:46 | XMS_ITS | Encounter Summary ---
Author Organization [facility] Ambulatory Address [address] [place] [address] Phone Care Team Providers Care Bid Analyst Name Role Phone External, Provider Unavailable Unavailable Ted Aguirre MD Primary Care Provider [phone] Dionte Alexis MD Unavailable Quang Moreno MD Unavailable [phone] Sharmaine Harris PA-C Unavailable [phone] Provider, Generic External Data Unavailable Unavailable ProviderQuita MD Unavailable Unavailabl Chad Abreu MD Unavailable Provider, Historical Unavailable Unavailable Caren Jacobs PA-C Unavailable [phone] Source Comments This information has been disclosed [...] except as provided at sections 2.12(c)(5) and 2.65.[facility] Ambulatory Encounter Details Date Type Department Care [...] on filedocumented in this encounter Care Teams Bid Analyst Relationship Specialty Start Date End Date Ted Aguirre MD PCP - General Family Medicine 01/18/14 External, Provider 01/17/14 Dionte Alexis MD [address] [place] [address] [address] [place] [address] Orthopaedics 01/18/14 Quang Moreno MD [address] [place] [address] [address] [place] [address] Orthopaedics 03/20/18 Sharmaine Harris PA-C [address] [place] [address] [place] [address] Orthopaedic Surgery 04/18/18 Provider, Generic External Data 11/09/21 Provider, MD Quita [facility] 04/28/23 Chad Manning MD [address] [place] [address] [address] [place] [address] production mechanic 05/09/23 Provider, Historical EPICARE PROVIDER 09/21/24 Caren Jacobs PA-C [address] [place] [phone] production mechanic 09/27/24 documented as of this encounter
--- OUTSIDE RECORDS SUMMARY | 2025-03-07 08:46 | XMS_ITS | Clinical Summary ---
Author Organization [facility] Ambulatory Address [address] [place] [address] Phone Care Team Providers Care Learning Center Coordinator Name Role Phone External, Provider Unavailable Unavailable Ted Aguirre MD Primary Care Provider [phone] Dionte Alexis MD Unavailable Quang Moreno MD Unavailable [phone] Sharmaine Harris PA-C Unavailable [phone] Provider, Generic External Data Unavailable Unavailable ProviderQuita MD Unavailable Unavailabl e Chad Manning MD Unavailable Provider, Historical Unavailable Unavailable Caren Jacobs PA-C Unavailable [phone] Source Comments This information has been disclosed [...] except as provided at sections 2.12(c)(5) and 2.65.[facility] Ambulatory Allergies Active Allergy Reactions [...] Vaccine (1 - 3-dose SCDM series) 2019 Depression Screening 06/27/2024 COVID-19 Vaccine ( - 2023-2 5 season) 2025 Flu Vaccine (#1) 03/27/2025 Pneumococcal Vaccine Aged Out No long er eligible based on patient's age to complete this topic [place] [address] [place] [address] [employer] [place] [phone] [place] [address] Care Teams Learning Center Coordinator Relationship Specialty Start Date End Date Ted Aguirre MD PCP - General Family Medicine 01/18/14 External, Provider 01/17/14 Dionte Alexis MD [address] [facility] [address] [place] [address] Orthopaedics 01/18/14 Quang Moreno MD [address] [place] [address] [address] [place] [address] Orthopaedics 03/20/18 Sharmaine Harris PA-C [address] [place] [address] [address] [place] [address] Orthopaedic Surgery 04/18/18 Provider, Generic External Data 11/09/21 Provider, Abstract, EPICARE PROVIDER 04/28/23 Chad Manning MD [address] [facility] [address] [place] [address] embedded systems software engineer 05/09/23 Provider, Historical EPICARE PROVIDER 09/21/24 Caren Jacobs PA-C [address] [place] [phone] embedded systems software engineer 09/27/24
[2025-03-07] MEDS: IBUPROFEN 600 MG TABLET PO (09:10)
[2025-03-07] MEDS: ACETAMINOPHEN 500MG TAB 1000 MG PO (09:10)
[2025-03-07] MEDS: DEXAMETHASONE 4MG TABLET 10 MG PO (09:10)
[2025-03-07] MEDS: IPRATROPIUM/ALBUTEROL 3 ML NEB 9 ML IH (09:11)
[2025-03-07] MEDS: FAMOTIDINE 20MG TABLET 40 MG PO (09:11)
[2025-03-07 09:47] VITALS: BP 171/111; PULSE 68; RESP 16; TEMP 36.5; O2SAT 100
== END 2025-03-07 09:48 | disposition home or self-care (01) ==
PROVIDERS: Emergency Provider Student in an Organized Health Care Education/Training Program
DX: T63.461A Toxic effect of venom of wasps, accidental (unintentional), initial encounter (principal); M79.632 Pain in left forearm; R22.32 Localized swelling, mass and lump, left upper limb
CPT/HCPCS: 99282; 99283; J8540